=== PATIENT | female | born 2000 | race Caucasian/White ===

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

== ENCOUNTER 2019-06-22 09:32 | Outpatient (CLI) | payer OTHER ==
[2019-06-22 10:30] LABS: Basophils % (A) 0 %; Eosinophils # (A) 0.1 k/uL (0-0.7); Eosinophils % (A) 1 %; HCT 35.8 % (34.0-46.0); HGB 11.7 gm/dL (11.4-16.0); Hypochromasia Moderate; Lymphocytes # (A) 2.5 k/uL (1.0-4.8); Lymphocytes % (A) 23 %; MCH 26.3 pg (25.0-35.0); MCHC 32.7 g/dL (31.0-37.0); MCV 80.4 fL (80.0-100.0); Mean Platelet Volume 6.8; Monocytes # (A) 0.4 k/uL (0-1.0); Monocytes % (A) 4 %; Neutrophils # (A) 7.9 k/uL (1.3-7.7); Neutrophils % (A) 71 %; Platelet Count 234 k/uL (150-450); Poikilocytosis Slight; RBC 4.45 m/uL (3.80-5.40); RDW 13.8 % (11.5-15.5); WBC 11.1 k/uL (4.0-11.0)
[2019-06-22 10:30] LABS: Appearance,Urine Cloudy (Clear); Bilirubin,Urine Negative (Negative); Blood,Urine Negative (Negative); Color,Urine Yellow; Glucose,Urine (UA) Negative (Negative); Ketones,Urine Negative (Negative); Leukocyte Esterase,Urine Moderate (Negative); Mucus,Urine Few /hpf; Nitrite,Urine Negative (Negative); PH, Urine 6.5 (5.0-8.0); Protein,Urine 1+ (Negative); RBC,Urine 1 /hpf (0-5); Specific Gravity,Urine 1.023 (1.001-1.035); Squamous Epithelial Cell,Urine 7 /hpf (0-4); WBC,Urine 1 /hpf (0-5)
[2019-06-22 10:37] LABS: ALT 17 U/L (9-52); AST 18 U/L (14-36); African American GFR (CKD) >90 (>60 ml/min/1.73 sqM); Blood Urea Nitrogen 8 mg/dL (7-17); LDH 498 U/L (313-618); Uric Acid 3.4 mg/dL (3.7-7.4)
[2019-06-22 11:41] LABS: T4, Free (Free Thyroxine) 0.89 ng/dL (0.78-2.19)
== END 2019-06-22 10:25 | disposition home or self-care (01) ==
LOC: FBPOP 09:32
PROVIDERS: ATTEND Obstetrics & Gynecology
DX: O13.9 Gestational [pregnancy-induced] hypertension without significant proteinuria, unspecified trimester (principal)
CPT/HCPCS: 59025; 81001; 82565; 82570; 83615; 84156; 84439; 84443; 84450; 84460; 84520; 84550; 85025

== ENCOUNTER 2019-07-02 13:13 | Outpatient (CLI) | payer OTHER ==
--- NOTE | 2019-07-02 14:18 | US ---
EXAMINATION TYPE: US OB limited DATE OF EXAM: 07/02/2019 COMPARISON: CLINICAL HISTORY: tila level only, velamentous cord insertion. TILA only per nurse EXAM PERFORMED: Transabdominal (TA) GESTATIONAL AGE / DATING Physician Established: (33 weeks/5 days) EDC: 08/15/2019 No growth performed on today?s study per ordering physician SURVEY TILA: 12.9 cm Normal HEART RATE: 167 bpm RHYTHM: Normal IMPRESSION: Limited scan. Findings above.
== END 2019-07-02 14:45 | disposition home or self-care (01) ==
LOC: FBPOP 13:13
PROVIDERS: ATTEND Obstetrics & Gynecology
DX: O26.93 Pregnancy related conditions, unspecified, third trimester (principal); Z3A.33 33 weeks gestation of pregnancy
CPT/HCPCS: 59025; 76815

== ENCOUNTER 2019-07-25 14:53 | Inpatient (IN) | payer OTHER ==
[2019-07-25 15:59] LABS: Basophils % (A) 0 %; Eosinophils # (A) 0.1 k/uL (0-0.7); Eosinophils % (A) 1 %; HCT 34.9 % (34.0-46.0); HGB 10.9 gm/dL (11.4-16.0); Hypochromasia Moderate; Lymphocytes # (A) 2.7 k/uL (1.0-4.8); Lymphocytes % (A) 25 %; MCH 23.7 pg (25.0-35.0); MCHC 31.2 g/dL (31.0-37.0); MCV 75.9 fL (80.0-100.0); Microcytosis Slight; Monocytes # (A) 0.5 k/uL (0-1.0); Monocytes % (A) 4 %; Neutrophils # (A) 7.4 k/uL (1.3-7.7); Neutrophils % (A) 69 %; Platelet Count 232 k/uL (150-450); Poikilocytosis Slight; WBC 10.9 k/uL (4.0-11.0)
[2019-07-25 16:12] LABS: Appearance,Urine Cloudy (Clear); Bacteria,Urine Rare /hpf; Bilirubin,Urine Negative (Negative); Blood,Urine Trace (Negative); Color,Urine Yellow; Glucose,Urine (UA) Trace (Negative); Ketones,Urine Trace (Negative); Leukocyte Esterase,Urine Moderate (Negative); Mucus,Urine Many /hpf; Nitrite,Urine Negative (Negative); Protein,Urine 2+ (Negative); RBC,Urine 5 /hpf (0-5); Specific Gravity,Urine 1.033 (1.001-1.035); Squamous Epithelial Cell,Urine 10 /hpf (0-4); Urobilinogen,Urine <2.0 mg/dL (<2.0); WBC,Urine 14 /hpf (0-5)
[2019-07-25 16:14] LABS: ALT 18 U/L (9-52); AST 14 U/L (14-36); African American GFR (CKD) >90 (>60 ml/min/1.73 sqM); Blood Urea Nitrogen 15 mg/dL (7-17); LDH 372 U/L (313-618); Non-African American GFR(CKD) >90 (>60 ml/min/1.73 sqM); Uric Acid 4.6 mg/dL (3.7-7.4)
[2019-07-25] MEDS ORDERED: LACTATED RINGERS 1,000 ML IV ONE (16:42)
[2019-07-25] MEDS ORDERED: ceFAZolin 3 GM in SODIUM CHLORIDE 0.9% 100 ML IVPB ONE (16:42)
[2019-07-25] MEDS ORDERED: CITRIC ACID-SODIUM CITRATE 15 ML CUP PO ONE (16:42)
--- NOTE | 2019-07-25 17:04 | P.HPOB ---
History of Present Illness H&P Date: 07/25/19 Chief Complaint: pre-eclampsia 19 year old presents at 37 weeks from the office with elevated blood pressures. Her BPs are ranging from 140-170/86-117. She has been having a headache on and off. P/C ratio is 0.4. heart tones 140 with moderate variability and reactive. Review of Systems All systems: negative Constitutional: Denies chills, Denies fever Eyes: denies blurred vision, denies pain Ears, nose, mouth and throat: Denies headache, Denies sore throat Cardiovascular: Denies chest pain, Denies shortness of breath Respiratory: Denies cough Gastrointestinal: Denies abdominal pain, Denies diarrhea, Denies nausea, Denies vomiting Genitourinary: Denies dysuria, Denies hematuria Musculoskeletal: Denies myalgias Integumentary: Denies pruritus, Denies rash Neurological: Denies numbness, Denies weakness Psychiatric: Denies anxiety, Denies depression Endocrine: Denies fatigue, Denies weight change Past Medical History Past Medical History: Thyroid Disorder History of Any Multi-Drug Resistant Organisms: None Reported Past Surgical History: Adenoidectomy, Section, Cholecystectomy, Orthopedic Surgery, Tonsillectomy Additional Past Surgical History / Comment(s): pancreatic stents Smoking Status: Never smoker Medications and Allergies Home Medications Medication Instructions Recorded Confirmed Type Levothyroxine Sodium [Synthroid] 130 mcg PO DAILY 07/01/18 07/25/19 History Pnv No.95/Ferrous Fum/Folic AC 1 each PO DAILY 07/24/19 07/25/19 History [ Multivitamin Tablet] Allergies Allergy/AdvReac Type Severity Reaction Status Date / Time No Known Allergies Allergy Verified 07/25/19 15:12 Exam Osteopathic Statement: *. No significant issues noted on an osteopathic structural exam other than those noted in the History and Physical/Consult. Vital Signs Temp Pulse Resp BP Pulse Ox 07/25/19 16:47 97.9 F 108 H 18 165/110 97 Intake and Output 07/25/19 07/25/19 07/25/19 06:59 14:59 22:59 Other: Weight 192.777 kg Heart: RRR Lungs: CTAB Abdomen: soft, nontender Extremeties: neg rajwinder's; 2+/4 DTR Results Result Diagrams: 07/25/19 15:45 07/25/19 15:45 Abnormal Lab Results - Last 24 Hours (Table) 07/25/19 07/25/19 07/25/19 Range/Units 15:45 15:54 15:54 Hgb 10.9 L (11.4-16.0) gm/dL MCV 75.9 L (80.0-100.0) fL MCH 23.7 L (25.0-35.0) pg Urine Appearance Cloudy H (Clear) Urine Protein 2+ H (Negative) Urine Glucose (UA) Trace H (Negative) Urine Ketones Trace H (Negative) Urine Blood Trace H (Negative) Ur Leukocyte Esterase Moderate H (Negative) Urine WBC 14 H (0-5) /hpf Ur Squamous Epith Cells 10 H (0-4) /hpf Urine Bacteria Rare H (None) /hpf Urine Mucus Many H (None) /hpf U Random Total Protein 111 H (<12) mg/dL Assessment and Plan (1) Pre-eclampsia Current Visit: Yes Status: Acute Code(s): O14.90 - UNSPECIFIED PRE- ECLAMPSIA, UNSPECIFIED TRIMESTER SNOMED Code(s): 532317312 Plan: 1. repeat low transverse
--- NOTE | 2019-07-25 17:07 | P.MSEPDOC ---
Presenting Problems - Arrival Data Date of Arrival on Unit: 07/25/19 Time of Arrival on Unit: 14:53 Mode of Transport: Ambulatory - Complaint OB-Reason for Admission/Chief Complaint: PIH Medical History - Information : 2 Para: 1 Term: 1 : 0 Abortions: Spontaneous or Elective: 0 Number of Living Children: 1 - Gestational Age Gestational Age by DOMINIC (wks/days): 37 Weeks and 0 Days - History Complications: Prior Review of Systems - Review of Systems Constitutional: No problems Breast: No problems ENT: No problems Cardiovascular: No problems Respiratory: No problems Gastrointestinal: No problems Genitourinary: No problems Musculoskeletal: No problems Neurological: No problems Skin: No problems Vital Signs - Temperature Temperature: 97.9 F Temperature Source: Temporal Artery Scan - Pulse Right Sitting Brachial Pulse Rate: 108 Pulse Assessment Method: Automatic Cuff - Respirations Respiratory Rate: 18 Oxygen Delivery Method: Room Air O2 Sat by Pulse Oximetry: 97 - Blood Pressure Right Arm Sitting Blood Pressure: 165/110 Blood Pressure Mean: 128 Blood Pressure Source: Automatic Cuff Medical Screen Scoring (Pre) - Cervical Exam Dilation: Exam Deferred Effacement: Exam Deferred Membranes: Intact - Uterine Contractions Frequency: N/A - Maternal Vital Signs Maternal Temperature: N/A Maternal Blood Pressure: N/A Signs of Preeclampsia: N/A Maternal Respirations: N/A - Maternal Trauma Maternal Trauma: N/A - Assessment - Baby A Baseline FHR: 150 Heart Rate - NICHD Category: Category I (Normal) = 0 NST: Reactive Position: N/A Station: N/A - Total Score - Baby A Total Score - Baby A: 0 - Total Score - Baby B Total Score - Baby B: 0 - Total Score - Baby C Total Score - Baby C: 0 - Level of Risk - Baby A Level of Risk - Baby A: Low (0-5) - Level of Risk - Baby B Level of Risk - Baby B: Low (0-5) - Level of Risk - Baby C Level of Risk - Baby C: Low (0-5) Physician Notification (Pre) - Physician Notified Physician Notified Date: 07/25/19 Physician Notified Time: 16:45 New Order Received: Yes - Notification Comment Comment: Reviewed serial BP, labs, reactive NST; orders rec'd to preop for repeat section Disposition - Disposition OB Disposition: Admit, LDRP Suite I agree with the RN Medical Screening Exam: Yes Risk & Benefit of care provided described in d/c instruction: No Risk & Benefit of Care Comment: pt was not discharged, she was admitted Diagnosis: UNSPECIFIED PRE-ECLAMPSIA, THIRD TRIMESTER
[2019-07-25] MEDS: LACTATED RINGERS 1,000 ML IV SCH (17:16)
[2019-07-25] MEDS ORDERED: DEXAMETHASONE SOD PHOS (MDV) 100 MG/10 ML VIAL ONE (17:17)
[2019-07-25] MEDS ORDERED: OXYTOCIN 10 UNIT/ML 1 ML VIAL ONE (17:17)
[2019-07-25] MEDS ORDERED: MORPHINE SULFATE (PF) 0.3 MG/0.3 ML SYR ONE (17:17)
[2019-07-25] MEDS ORDERED: ONDANSETRON 4 MG/2 ML VIAL ONE (17:17)
[2019-07-25] MEDS ORDERED: KETOROLAC 30 MG/ML 1 ML VIAL ONE (17:17)
[2019-07-25] MEDS ORDERED: LACTATED RINGERS 1,000 ML BAG IV ONE (17:17)
[2019-07-25] MEDS ORDERED: LANOLIN CREAM 5 GM TUBE TOPICAL PRN (18:06)
[2019-07-25] MEDS ORDERED: METOCLOPRAMIDE 5 MG/ML 2 ML VIAL IVP PRN (18:06)
[2019-07-25] MEDS ORDERED: diphenhydrAMINE 25 MG CAP PO PRN (18:06)
[2019-07-25] MEDS ORDERED: diphenhydrAMINE 50 MG/ML 1 ML VIAL IVP PRN ×2 (18:06)
[2019-07-25] MEDS ORDERED: NALOXONE 0.4 MG/ML 1 ML VIAL IV PRN (18:06)
[2019-07-25] MEDS ORDERED: ZOLPIDEM 5 MG TAB PO PRN (18:06)
[2019-07-25] MEDS ORDERED: ONDANSETRON 4 MG/2 ML VIAL IVP PRN (18:06)
[2019-07-25] MEDS ORDERED: diphenhydrAMINE 50 MG CAP PO PRN (18:06)
[2019-07-25] MEDS ORDERED: ACETAMINOPHEN TAB 325 MG TAB PO PRN (18:06)
[2019-07-25] MEDS ORDERED: SIMETHICONE 80 MG CHEWABLE PO PRN (18:06)
--- NOTE | 2019-07-25 18:11 | P.OP ---
Date of Procedure: 07/25/19 Preoperative Diagnosis: 1. at 37 weeks 2. Preeclampsia Postoperative Diagnosis: 1. at 37 weeks 2. Preeclampsia Procedure(s) Performed: Repeat low transverse Anesthesia: spinal Surgeon: Paola Penn Solar System Designer #1: Nicholas Jalloh Estimated Blood Loss (ml): 600 IV fluids (ml): 1,000 Urine output (ml): 50 Pathology: other (Placenta) Condition: stable Disposition: PACU Indications for Procedure: Please see dictated H&P for full instrument details about indications for procedure. Operative Findings: Normal uterus, tubes, ovaries. Viable female, Apgars 8, 9, weight 10 lbs. 14 oz. Description of Procedure: Patient was taken to the operating room where spinal anesthesia was found be adequate. She was prepped and draped in normal sterile fashion in dorsal supine position with a leftward tilt. Pfannenstiel skin incision was made the scalpel and carried through to the underlying layer of fascia with the scalpel. Fascia was incised in midline and carried bilaterally with the Howard scissors. The superior aspect of the fascial incision was grasped with Misty clamps elevated and the underlying rectus muscles dissected off with the Howard's. Attention was then turned to inferior aspect of same incision which in a similar fashion was grasped tented up and the underlying rectus muscles dissected off with the Howard's. The rectus muscles were the midline and the peritoneum was identified tented up and entered sharply with the scalpel. The incision was extended superiorly and inferiorly with good visualization of the bladder. The bladder blade was inserted and a low transverse incision was then made on the uterus with the scalpel. This was carried bilaterally and digital manner. 's head delivered atraumatically, nose and mouth bulb suctioned, cord clamped and cut, infant handed off to waiting nurses. Apgars 8,9, weight 10 lbs. 14 oz. Placenta delivered manually, intact with three-vessel cord. The uterus is exteriorized and cleared of all clots and debris. The uterine incision was closed with 0 Vicryl in a running locked fashion. Second layer of the same sutures used in imbricating fashion to obtain excellent hemostasis. Both ovaries and tubes appeared normal. The uterus was placed back into the abdomen. The peritoneum was reapproximated using 2-0 Vicryl in a running fashion To avoid the omentum that was adhered to the peritoneum just superior to the incision. The muscles were reapproximated using 2-0 Vicryl in interrupted fashion. The fascia was reapproximated using 0 Vicryl in a running fashion. The subcutaneous tissues closed with 3-0 Vicryl running fashion. The skin was closed kate. Patient tolerated the procedure well, sponge and instrument counts were correct times 2 and she was taken to the recovery room in stable condition.
[2019-07-25] MEDS ORDERED: OXYTOCIN 20 UNITS/1000 ML NS 1,000 ML IV SCH (18:15)
[2019-07-25] MEDS: SENNOSIDES-DOCUSATE SODIUM 1 EACH TAB PO SCH (21:29)
[2019-07-25] MEDS: KETOROLAC 30 MG/ML 1 ML VIAL IVP PRN (23:15)
[2019-07-26] MEDS: LACTATED RINGERS 1,000 ML IV SCH ×3 (02:31→19:32)
--- NOTE | 2019-07-26 06:01 | P.PN ---
Progress Note - Text Progress Note Date: 07/26/19 Patient without complaints. Denies weakness or paresthesia. Denies headache. Minimal pruritis. Pain controlled. VSS Back - spinal site c/d A/P POD#1 s/p with spinal - doing well
[2019-07-26] MEDS: KETOROLAC 30 MG/ML 1 ML VIAL IVP PRN ×3 (06:14→19:21)
--- NOTE | 2019-07-26 06:22 | P.PNOBGPC ---
Subjective - Subjective Patient reports: Reports appetite normal, Reports voiding normally, Reports pain well controlled, Reports ambulating normally : doing well, in NICU (Low blood sugars) Objective - Vital Signs Latest vital signs: Vital Signs Temp Pulse Pulse Resp BP Pulse Ox 07/26/19 03:13 98.3 F 80 16 142/72 96 07/25/19 23:19 97.8 F 97 18 127/83 95 07/25/19 20:14 80 18 145/81 98 07/25/19 19:44 96.2 F L 93 18 137/86 97 07/25/19 19:14 95.9 F L 79 18 132/83 07/25/19 18:59 84 18 140/86 96 07/25/19 18:44 83 18 137/80 98 07/25/19 18:29 93 18 127/85 07/25/19 18:14 97 F L 97 18 118/59 99 07/25/19 17:07 97.9 F 108 H 18 165/110 97 07/25/19 16:47 97.9 F 108 H 18 165/110 97 Intake and Output 07/25/19 07/25/19 07/26/19 14:59 22:59 06:59 Intake Total 2820 Output Total 275 Balance 2545 Intake: Intake, IV Titration 700 Amount Oxytocin 20 Units/1000 ml 700 Ns 1,000 ml @ Per Protocol IV .Q0M [facility] Rx#: [id number] Oral 2120 Output: Urine 275 Other: Voiding Method Indwelling Catheter Incontinent Weight 192.777 kg - Exam Lungs: bilateral: normal Chest: Normal S1, Normal S2 Extremities: Present: normal Abdomen: Present: normal appearance, soft. Absent: distention, tenderness Incision: Present: normal, dry, intact Uterus: Present: normal, firm - Labs Labs: Abnormal Lab Results - Last 24 Hours (Table) 07/25/19 07/25/19 07/25/19 Range/Units 15:45 15:54 15:54 Hgb 10.9 L (11.4-16.0) gm/dL MCV 75.9 L (80.0-100.0) fL MCH 23.7 L (25.0-35.0) pg Urine Appearance Cloudy H (Clear) Urine Protein 2+ H (Negative) Urine Glucose (UA) Trace H (Negative) Urine Ketones Trace H (Negative) Urine Blood Trace H (Negative) Ur Leukocyte Esterase Moderate H (Negative) Urine WBC 14 H (0-5) /hpf Ur Squamous Epith Cells 10 H (0-4) /hpf Urine Bacteria Rare H (None) /hpf Urine Mucus Many H (None) /hpf U Random Total Protein 111 H (<12) mg/dL Assessment and Plan Assessment: This is postoperative day #1. Patient is resting without new complaints. Blood pressures are fine and not requiring medication at this time. Patient does not report any excessive pain. Incision is intact and dry. Patient's having adequate urine output from her Espitia catheter. Plan today is to check a CBC, encourage ambulation, allow the patient to shower, discontinue her Espitia catheter, and advance her diet. (1) delivery delivered Current Visit: Yes Status: Acute Code(s): O82 - ENCOUNTER FOR DELIVERY WITHOUT INDICATION SNOMED Code(s): 561781018 (2) Pre-eclampsia Current Visit: Yes Status: Acute Code(s): O14.90 - UNSPECIFIED PRE- ECLAMPSIA, UNSPECIFIED TRIMESTER SNOMED Code(s): 082233585
[2019-07-26 07:08] LABS: Basophils % (A) 0 %; Eosinophils % (A) 0 %; HCT 30.6 % (34.0-46.0); HGB 9.6 gm/dL (11.4-16.0); Hypochromasia Moderate; Lymphocytes # (A) 3.2 k/uL (1.0-4.8); Lymphocytes % (A) 24 %; MCHC 31.4 g/dL (31.0-37.0); MCV 76.4 fL (80.0-100.0); Mean Platelet Volume 8.4; Microcytosis Slight; Monocytes # (A) 0.7 k/uL (0-1.0); Monocytes % (A) 5 %; Neutrophils # (A) 9.2 k/uL (1.3-7.7); Neutrophils % (A) 69 %; Platelet Count 235 k/uL (150-450); Poikilocytosis Slight; RBC 4.01 m/uL (3.80-5.40); WBC 13.3 k/uL (4.0-11.0)
[2019-07-26] MEDS: SENNOSIDES-DOCUSATE SODIUM 1 EACH TAB PO SCH ×2 (08:02→19:20)
[2019-07-26] MEDS: HYDROcodone/APAP 7.5-325MG 1 EACH TAB PO PRN ×2 (17:05→23:22)
[2019-07-27] MEDS: KETOROLAC 30 MG/ML 1 ML VIAL IVP PRN (03:49)
--- NOTE | 2019-07-27 07:04 | P.PNOBGPC ---
Subjective - Subjective Patient reports: Reports appetite normal, Reports voiding normally, Reports pain well controlled, Reports ambulating normally : doing well, in NICU Objective - Vital Signs Latest vital signs: Vital Signs Temp Pulse Resp BP Pulse Ox 07/27/19 00:00 98.5 F 100 16 126/64 97 07/26/19 15:53 98.2 F 97 18 121/95 97 07/26/19 12:00 98.3 F 83 18 140/82 97 07/26/19 08:00 98.7 F 94 18 127/77 96 Intake and Output 07/26/19 07/27/19 07/27/19 22:59 06:59 14:59 Output Total 700 Balance -700 Output: Urine 700 Other: # Voids 1 1 - Exam Lungs: bilateral: normal Chest: Normal S1, Normal S2 Extremities: Present: normal Abdomen: Present: normal appearance, soft. Absent: distention, tenderness Incision: Present: normal, dry, intact Uterus: Present: normal, firm - Labs Labs: Abnormal Lab Results - Last 24 Hours (Table) 07/26/19 Range/Units 06:50 WBC 13.3 H (4.0-11.0) k/uL Hgb 9.6 L (11.4-16.0) gm/dL Hct 30.6 L (34.0-46.0) % MCV 76.4 L (80.0-100.0) fL MCH 24.0 L (25.0-35.0) pg Neutrophils # 9.2 H (1.3-7.7) k/uL Assessment and Plan Assessment: Postoperative day #2. This patient is resting without complaints. Vital signs are stable and she is afebrile. Blood pressures look very good. Incision is intact and dry. CBC yesterday was normal. Patient is ambulating and urinating without difficulty. My impression this is a normal post operative course. Patient's baby is in special care due to some oxygen demands otherwise doing well. Plan will be to continue ambulation and routine postoperative care. (1) delivery delivered Current Visit: Yes Status: Acute Code(s): O82 - ENCOUNTER FOR DELIVERY WITHOUT INDICATION SNOMED Code(s): 665425621 (2) Pre-eclampsia Current Visit: Yes Status: Acute Code(s): O14.90 - UNSPECIFIED PRE- ECLAMPSIA, UNSPECIFIED TRIMESTER SNOMED Code(s): 407172636
[2019-07-27] MEDS: SENNOSIDES-DOCUSATE SODIUM 1 EACH TAB PO SCH ×2 (07:45→20:02)
[2019-07-27] MEDS: HYDROcodone/APAP 7.5-325MG 1 EACH TAB PO PRN ×3 (07:45→20:02)
[2019-07-27] MEDS: IBUPROFEN 600 MG TAB PO PRN ×2 (11:07→17:10)
[2019-07-28] MEDS: IBUPROFEN 600 MG TAB PO PRN (00:11)
[2019-07-28] MEDS: HYDROcodone/APAP 7.5-325MG 1 EACH TAB PO PRN (04:44)
--- NOTE | 2019-07-28 08:30 | P.DS ---
Providers Date of admission: 07/25/19 16:41 Expected date of discharge: 07/28/19 Attending physician: Paola Penn Primary care physician: Stated None - Discharge Diagnosis(es) (1) Pre-eclampsia Current Visit: Yes Status: Resolved (2) delivery delivered Current Visit: Yes Status: Acute Hospital Course: Patient presented term with elevated blood pressure. She was diagnosed with preeclampsia and taken for repeat low transverse . Postoperatively her course was uncomplicated. Her blood pressures normalized. She denies nausea, vomiting, chest pain, shortness of breath or calf pain. Her incision is clean, dry, intact with kate which will be removed today before discharge. Discharge instructions were reviewed and she will follow-up with me in one week. Plan - Discharge Summary New Discharge Prescriptions: New Ibuprofen [Motrin] 600 mg PO Q6HR PRN #30 tab PRN Reason: Mild Pain Or Fever >= 100.5 HYDROcodone/APAP 7.5-325MG [[place] 7.5-325] 1 each PO Q6H PRN #12 tab PRN Reason: Severe Pain No Action Levothyroxine Sodium [Synthroid] 130 mcg PO DAILY Pnv No.95/Ferrous Fum/Folic AC [ Multivitamin Tablet] 1 each PO DAILY Discharge Medication List Levothyroxine Sodium [Synthroid] 130 mcg PO DAILY 07/01/18 [History] Pnv No.95/Ferrous Fum/Folic AC [ Multivitamin Tablet] 1 each PO DAILY 07/24/19 [History] HYDROcodone/APAP 7.5-325MG [[place] 7.5-325] 1 each PO Q6H PRN #12 tab 07/28/19 [Rx] Ibuprofen [Motrin] 600 mg PO Q6HR PRN #30 tab 07/28/19 [Rx] Follow up Appointment(s)/Referral(s): Paola Penn DO [Doctor of Osteopathic Medicine] - 6 Weeks Discharge Disposition: HOME SELF-CARE
[2019-07-28 08:44] VITALS: BP 156/80; PULSE 101; RESP 16; TEMP 98.2
== END 2019-07-28 09:45 | disposition home or self-care (01) | DRG 788 ==
LOC: FBPOP 14:53 → 4FBP 16:41
PROVIDERS: ADMIT Obstetrics & Gynecology; ATTEND Obstetrics & Gynecology
PROC: 10D00Z1 Extraction of Products of Conception, Low, Open Approach (ICD-10-PCS; principal; 2019-07-25 17:30)
DX: O14.94 Unspecified pre-eclampsia, complicating childbirth (principal); O34.211 Maternal care for low transverse scar from previous cesarean delivery; Z37.0 Single live birth; Z3A.37 37 weeks gestation of pregnancy; O99.284 Endocrine, nutritional and metabolic diseases complicating childbirth; E07.9 Disorder of thyroid, unspecified; Z79.890 Hormone replacement therapy
CPT/HCPCS: 59025; 81001; 82565; 82570; 83615; 84156; 84450; 84460; 84520; 84550; 85025; 86850; 86900; 86901; 88307; 99215

== ENCOUNTER 2019-08-03 17:29 | Inpatient (IN) | payer OTHER ==
[2019-08-03] MEDS ORDERED: LABETALOL 5 MG/ML VIAL MDV IVP STA ×2 (17:56→19:49)
[2019-08-03] MEDS ORDERED: SODIUM CHLORIDE 0.9% 500 ML 500 ML IV STA (17:56)
[2019-08-03 18:45] LABS: Basophils # (A) 0.1 k/uL (0-0.2); Basophils % (A) 1 %; Eosinophils # (A) 0.2 k/uL (0-0.7); Eosinophils % (A) 2 %; HGB 11.2 gm/dL (11.4-16.0); Hypochromasia Moderate; Lymphocytes # (A) 2.8 k/uL (1.0-4.8); Lymphocytes % (A) 26 %; MCH 23.8 pg (25.0-35.0); MCV 76.8 fL (80.0-100.0); Mean Platelet Volume 7.8; Microcytosis Slight; Monocytes # (A) 0.5 k/uL (0-1.0); Monocytes % (A) 5 %; Neutrophils # (A) 7.1 k/uL (1.3-7.7); Neutrophils % (A) 66 %; Platelet Count 336 k/uL (150-450); Poikilocytosis Slight; RBC 4.69 m/uL (3.80-5.40); RDW 15.7 % (11.5-15.5); WBC 10.8 k/uL (4.0-11.0)
[2019-08-03 18:50] LABS: Appearance,Urine Clear (Clear); Bacteria,Urine Rare /hpf; Bilirubin,Urine Negative (Negative); Blood,Urine Large (Negative); Color,Urine Light Yellow; Glucose,Urine (UA) Negative (Negative); Ketones,Urine Negative (Negative); Leukocyte Esterase,Urine Large (Negative); Mucus,Urine Rare /hpf; Nitrite,Urine Negative (Negative); PH, Urine 6.5 (5.0-8.0); Protein,Urine Negative (Negative); RBC,Urine 72 /hpf (0-5); Specific Gravity,Urine 1.008 (1.001-1.035); Squamous Epithelial Cell,Urine 1 /hpf (0-4); Urobilinogen,Urine <2.0 mg/dL (<2.0); WBC,Urine 7 /hpf (0-5)
[2019-08-03 18:55] LABS: ALT 18 U/L (4-34); AST 21 U/L (14-36); African American GFR (CKD) >90 (>60 ml/min/1.73 sqM); Albumin 3.6 g/dL (3.5-5.0); Alkaline Phosphatase 147 U/L (38-126); Anion Gap 7 mmol/L; Blood Urea Nitrogen 16 mg/dL (7-17); Calcium 9.1 mg/dL (8.4-10.2); Carbon Dioxide 27 mmol/L (22-30); Chloride 108 mmol/L (98-107); Glucose 81 mg/dL (74-99); LDH 657 U/L (313-618); Magnesium 1.9 mg/dL (1.6-2.3); Non-African American GFR(CKD) >90 (>60 ml/min/1.73 sqM); Potassium 4.1 mmol/L (3.5-5.1); Sodium 142 mmol/L (137-145); Total Bilirubin 0.4 mg/dL (0.2-1.3); Total Protein 6.6 g/dL (6.3-8.2); Uric Acid 7.4 mg/dL (3.7-7.4)
[2019-08-03 19:01] LABS: Protein/Creatinine Ratio,Urine 0.4
[2019-08-03] MEDS: MAGNESIUM SULFATE-D5W PMX 1 GM in DEXTROSE/WATER 1 100ML.BAG IVPB SCH ×2 (19:13→20:15)
[2019-08-03] MEDS ORDERED: MAGNESIUM SULFATE-WATER PMX 4 GM in WATER FOR INJECTION 1 100ML.BAG IVPB ONE (20:12)
[2019-08-03] MEDS ORDERED: MAGNESIUM SULFATE-D5W PMX 1 GM in DEXTROSE/WATER 1 100ML.BAG IVPB SCH (20:15)
[2019-08-03] MEDS ORDERED: NALOXONE 0.4 MG/ML 1 ML VIAL IV PRN (20:28)
[2019-08-03] MEDS ORDERED: LABETALOL 5 MG/ML VIAL MDV IVP PRN ×2 (20:30→22:36)
--- NOTE | 2019-08-03 20:31 | ED ---
General Adult HPI - General Source: patient, RN notes reviewed, old records reviewed Mode of arrival: wheelchair Limitations: no limitations <Chandan Luna - Last Filed: 08/03/19 20:27> <Tania Hargrove - Last Filed: 08/04/19 13:44> - General Chief complaint: Headache Stated complaint: Headache, post op Time Seen by Provider: 08/03/19 17:49 - History of Present Illness Initial comments: 19-year-old female patient past medical history of gestational hypertension, C- section due to preeclampsia one week ago by Dr. Penn presents to ED with chief complaint of headache, blurred vision. Patient was advised by her SPOUT WORKER at the symptoms have been to return to the emergency department. Patient denies any complaints at this time. Denies any abdominal pain. Systemic: Pt denies fatigue, fever/chills, rash. Pt denies weakness, night sweats, weight loss. Neuro: Pt denies visual disturbances, syncope or pre-syncope. HEENT: Pt denies ocular discharge or irritation, otalgia, rhinorrhea, pharyngitis or notable lymphadenopathy. Cardiopulmonary: Pt denies chest pain, SOB, heart palpitations, dyspnea on exertion. Abdominal/GI: Pt denies abdominal pain, n/v/d. : Pt denies dysuria, burning w/ urination, frequency/urgency. Denies new onset urinary or bowel incontinence. MSK: Pt denies myalgia, loss of strength or function in extremities. Neuro: Pt denies new onset weakness, paresthesias. (Chandan Luna) - Related Data Home Medications Medication Instructions Recorded Confirmed Levothyroxine Sodium [Synthroid] 130 mcg PO DAILY 07/01/18 08/03/19 Pnv No.95/Ferrous Fum/Folic AC 1 each PO DAILY 07/24/19 08/03/19 [ Multivitamin Tablet] Previous Rx's Medication Instructions Recorded Ibuprofen [Motrin] 600 mg PO Q6HR PRN #30 tab 07/28/19 Allergies Allergy/AdvReac Type Severity Reaction Status Date / Time No Known Allergies Allergy Verified 08/03/19 23:05 Review of Systems ROS Other: All systems not noted in ROS Statement are negative. <Chandan Luna - Last Filed: 08/03/19 20:27> ROS Other: All systems not noted in ROS Statement are negative. <Tania Hargrove - Last Filed: 08/04/19 13:44> ROS Statement: Those systems with pertinent positive or pertinent negative responses have been documented in the HPI. Past Medical History Past Medical History: Thyroid Disorder Additional Past Medical History / Comment(s): pre eclampsia History of Any Multi-Drug Resistant Organisms: None Reported Past Surgical History: Adenoidectomy, Section, Cholecystectomy, Orthopedic Surgery, Tonsillectomy Additional Past Surgical History / Comment(s): pancreatic stents Past Psychological History: No Psychological Hx Reported Smoking Status: Never smoker Past Alcohol Use History: None Reported Past Drug Use History: None Reported - Past Family History Mother Family Medical History: No Reported History <Chandan Luna - Last Filed: 08/03/19 20:27> General Exam Limitations: no limitations <Chandan Luna - Last Filed: 08/03/19 20:27> - General Exam Comments Initial Comments: Constitutional: NAD, AOX3, Pt has pleasant affect. HEENT: NC/AT, trachea midline, neck supple, no lymphadenopathy. Posterior pharynx non erythematous, without exudates. External ears appear normal, without discharge. Mucous membranes moist. Eyes PERRLA, EOM intact. There is no scleral icterus. No pallor noted. Cardiopulmonary: RRR, no murmurs, rubs or gallops, no JVD noted. Lungs CTAB in anterior and posterior mesa. No peripheral edema. Abdominal exam: Abdomen soft and non-distended. Abdomen non-tender to palpation in all 4 quadrants. Bowel sounds active in LLQ. No hepatosplenomegaly. No ec chymosis. Dizziness that appears clean, is within skinfold, small amount of erythema. No discharge. Neuro: CN II-XII grossly intact. No nuchal rigidity. No raccon eyes, no costello sign, no hemotympanum. No cervical spinal tenderness. MSK: No posterior calf tenderness bilaterally, homans sign negative bilaterally. Posterior tibialis and radial pulse +2 bilaterally. Sensation intact in upper and lower extremities. Full active ROM in upper and lower extremities, 5/5 stregnth. (Chandan Luna) Course Vital Signs 08/03/19 08/03/19 08/03/19 17:35 19:08 19:15 Temperature 98.6 F Pulse Rate 83 76 78 Respiratory 18 20 20 Rate Blood Pressure 162/108 161/106 151/95 O2 Sat by Pulse 97 98 98 Oximetry 08/03/19 08/03/19 08/03/19 19:54 20:19 21:11 Temperature 98.6 F Pulse Rate 77 81 77 Respiratory 18 20 20 Rate Blood Pressure 155/87 158/83 166/90 O2 Sat by Pulse 100 98 97 Oximetry Medical Decision Making - Lab Data Result diagrams: 08/03/19 18:27 08/03/19 18:27 <Chandan Luna - Last Filed: 08/03/19 20:27> - Lab Data Result diagrams: 08/04/19 05:48 08/04/19 05:48 <Tania Hargrove - Last Filed: 08/04/19 13:44> - Medical Decision Making 19-year-old female patient past medical history of gestational hypertension, C- section due to preeclampsia one week ago by Dr. Penn presents to ED with chief complaint of headache, blurred vision. Patient was advised by her SPOUT WORKER at the symptoms have been to return to the emergency department. Patient denies any complaints at this time. Denies any abdominal pain. Patient will signs blood hypertension, patient initiated on magnesium, labetalol. Physical exam displayed intact neurologic exam. Incision site was examined, there is small amount of erythema, however this within skinfold due to body habitus. No streaking. No discharge. Laboratory investigations revealed elevated lactic dehydrogenase. Mild hematuria. Case discussed with Dr. Hargrove who discussed case with Dr. Penn. Patient will be admitted on magnesium drip to Dr. Penn. (Chandan Luna) I was available for consultation in the emergency department. The history and physical exam were done by the midlevel provider. I was consulted for this patients care. I reviewed the case with the midlevel provider and based on their presentation of the patient, I agree with the assessment, medical decision making and plan of care as documented. I evaluated the patient myself. She promptly received magnesium bolus and labetalol by the midlevel. After results were obtained, I discussed the case with Dr. Penn who accepted admission of the patient on a magenisum gtt at 2 grams/hr. Blood pressure goal will be less than 160 systolic. staning labetalol order was placed. Chart was dictated using [employer] dictation software. Attempts were made to correct any dictation errors however some typographical errors may persist. (Tania Hargrove) - Lab Data Lab Results 08/03/19 08/03/19 08/03/19 Range/Units 18:27 18:27 18:27 WBC 10.8 (4.0-11.0) k/uL RBC 4.69 (3.80-5.40) m/uL Hgb 11.2 L (11.4-16.0) gm/dL Hct 36.0 (34.0-46.0) % MCV 76.8 L (80.0-100.0) fL MCH 23.8 L (25.0-35.0) pg MCHC 31.0 (31.0-37.0) g/dL RDW 15.7 H (11.5-15.5) % Plt Count 336 (150-450) k/uL Neutrophils % 66 % Lymphocytes % 26 % Monocytes % 5 % Eosinophils % 2 % Basophils % 1 % Neutrophils # 7.1 (1.3-7.7) k/uL Lymphocytes # 2.8 (1.0-4.8) k/uL Monocytes # 0.5 (0-1.0) k/uL Eosinophils # 0.2 (0-0.7) k/uL Basophils # 0.1 (0-0.2) k/uL Hypochromasia Moderate Poikilocytosis Slight Microcytosis Slight Sodium 142 (137-145) mmol/L Potassium 4.1 (3.5-5.1) mmol/L Chloride 108 H (98-107) mmol/L Carbon Dioxide 27 (22-30) mmol/L Anion Gap 7 mmol/L BUN 16 (7-17) mg/dL Creatinine 0.87 (0.52-1.04) mg/dL Est GFR (CKD-EPI)AfAm >90 (>60 ml/min/1.73 sqM) Est GFR (CKD-EPI)NonAf >90 (>60 ml/min/1.73 sqM) Glucose 81 (74-99) mg/dL Plasma Lactic Acid Jose (0.7-2.0) mmol/L Uric Acid 7.4 (3.7-7.4) mg/dL Calcium 9.1 (8.4-10.2) mg/dL Magnesium 1.9 (1.6-2.3) mg/dL Total Bilirubin 0.4 (0.2-1.3) mg/dL AST 21 (14-36) U/L ALT 18 (4-34) U/L Alkaline Phosphatase 147 H (38-126) U/L Lactate Dehydrogenase 657 H (313-618) U/L Total Protein 6.6 (6.3-8.2) g/dL Albumin 3.6 (3.5-5.0) g/dL Lipase 20 L (23-300) U/L TSH 3.420 (0.465-4.680) mIU/L Urine Color Urine Appearance (Clear) Urine pH (5.0-8.0) Ur Specific Frederick (1.001-1.035) Urine Protein (Negative) Urine Glucose (UA) (Negative) Urine Ketones (Negative) Urine Blood (Negative) Urine Nitrite (Negative) Urine Bilirubin (Negative) Urine Urobilinogen (<2.0) mg/dL Ur Leukocyte Esterase (Negative) Urine RBC (0-5) /hpf Urine WBC (0-5) /hpf Ur Squamous Epith Cells (0-4) /hpf Urine Bacteria (None) /hpf Urine Mucus (None) /hpf Urine Creatinine 37.8 mg/dL Protein/Creatinin Ratio 0.4 Urine Total Protein 17 mg/dL 08/03/19 08/03/19 Range/Units 18:27 18:38 WBC (4.0-11.0) k/uL RBC (3.80-5.40) m/uL Hgb (11.4-16.0) gm/dL Hct (34.0-46.0) % MCV (80.0-100.0) fL MCH (25.0-35.0) pg MCHC (31.0-37.0) g/dL RDW (11.5-15.5) % Plt Count (150-450) k/uL Neutrophils % % Lymphocytes % % Monocytes % % Eosinophils % % Basophils % % Neutrophils # (1.3-7.7) k/uL Lymphocytes # (1.0-4.8) k/uL Monocytes # (0-1.0) k/uL Eosinophils # (0-0.7) k/uL Basophils # (0-0.2) k/uL Hypochromasia Poikilocytosis Microcytosis Sodium (137-145) mmol/L Potassium (3.5-5.1) mmol/L Chloride (98-107) mmol/L Carbon Dioxide (22-30) mmol/L Anion Gap mmol/L BUN (7-17) mg/dL Creatinine (0.52-1.04) mg/dL Est GFR (CKD-EPI)AfAm (>60 ml/min/1.73 sqM) Est GFR (CKD-EPI)NonAf (>60 ml/min/1.73 sqM) Glucose (74-99) mg/dL Plasma Lactic Acid Jose 1.0 (0.7-2.0) mmol/L Uric Acid (3.7-7.4) mg/dL Calcium (8.4-10.2) mg/dL Magnesium (1.6-2.3) mg/dL Total Bilirubin (0.2-1.3) mg/dL AST (14-36) U/L ALT (4-34) U/L Alkaline Phosphatase (38-126) U/L Lactate Dehydrogenase (313-618) U/L Total Protein (6.3-8.2) g/dL Albumin (3.5-5.0) g/dL Lipase (23-300) U/L TSH (0.465-4.680) mIU/L Urine Color Light Yellow Urine Appearance Clear (Clear) Urine pH 6.5 (5.0-8.0) Ur Specific Frederick 1.008 (1.001-1.035) Urine Protein Negative (Negative) Urine Glucose (UA) Negative (Negative) Urine Ketones Negative (Negative) Urine Blood Large H (Negative) Urine Nitrite Negative (Negative) Urine Bilirubin Negative (Negative) Urine Urobilinogen <2.0 (<2.0) mg/dL Ur Leukocyte Esterase Large H (Negative) Urine RBC 72 H (0-5) /hpf Urine WBC 7 H (0-5) /hpf Ur Squamous Epith Cells 1 (0-4) /hpf Urine Bacteria Rare H (None) /hpf Urine Mucus Rare H (None) /hpf Urine Creatinine mg/dL Protein/Creatinin Ratio Urine Total Protein mg/dL Disposition Is patient prescribed a controlled substance at d/c from ED?: No <Chandan Luna - Last Filed: 08/03/19 20:27> <Tania Hargrove - Last Filed: 08/04/19 13:44> Clinical Impression: Pre-eclampsia Disposition: ADMITTED IP TO THIS HOSP Condition: Serious
[2019-08-03] MEDS: MAGNESIUM SULFATE-WATER PMX 20 GM in WATER FOR INJECTION 1 500ML.BAG IV SCH (21:55)
[2019-08-03] MEDS ORDERED: ACETAMINOPHEN TAB 500 MG TAB PO PRN (22:27)
[2019-08-03] MEDS ORDERED: LABETALOL SYRINGE 5 MG/ML IVP PRN (22:36)
[2019-08-03] MEDS ORDERED: hydrALAZINE HCL 20 MG/ML 1 ML VIAL IVP PRN ×2 (22:36)
[2019-08-04] MEDS: IBUPROFEN 600 MG TAB PO PRN ×2 (00:19→15:06)
[2019-08-04] MEDS: LABETALOL 200 MG TAB PO SCH ×3 (00:19→20:56)
[2019-08-04] MEDS: LACTATED RINGERS 1,000 ML IV SCH ×2 (03:07→11:20)
[2019-08-04 06:12] LABS: Basophils % (A) 0 %; Eosinophils # (A) 0.2 k/uL (0-0.7); Eosinophils % (A) 2 %; HCT 32.5 % (34.0-46.0); Hypochromasia Marked; Lymphocytes # (A) 3.2 k/uL (1.0-4.8); Lymphocytes % (A) 29 %; MCH 22.9 pg (25.0-35.0); MCHC 28.8 g/dL (31.0-37.0); MCV 79.6 fL (80.0-100.0); Mean Platelet Volume 8.1; Monocytes # (A) 0.4 k/uL (0-1.0); Monocytes % (A) 4 %; Neutrophils # (A) 6.9 k/uL (1.3-7.7); Neutrophils % (A) 63 %; Platelet Count 337 k/uL (150-450); Poikilocytosis Slight; RBC 4.08 m/uL (3.80-5.40); RDW 15.1 % (11.5-15.5); WBC 10.9 k/uL (4.0-11.0)
[2019-08-04 06:13] LABS: HGB 9.4 gm/dL (11.4-16.0)
[2019-08-04 06:26] LABS: ALT 16 U/L (4-34); AST 20 U/L (14-36); African American GFR (CKD) >90 (>60 ml/min/1.73 sqM); Alkaline Phosphatase 132 U/L (38-126); Anion Gap 7 mmol/L; Blood Urea Nitrogen 12 mg/dL (7-17); Calcium 8.1 mg/dL (8.4-10.2); Carbon Dioxide 25 mmol/L (22-30); Chloride 109 mmol/L (98-107); Glucose 97 mg/dL (74-99); Non-African American GFR(CKD) >90 (>60 ml/min/1.73 sqM); Potassium 4.3 mmol/L (3.5-5.1); Sodium 141 mmol/L (137-145); Total Bilirubin 0.4 mg/dL (0.2-1.3); Total Protein 5.8 g/dL (6.3-8.2)
[2019-08-04] MEDS: LEVOTHYROXINE 137 MCG TAB PO SCH (06:29)
[2019-08-04] MEDS: MAGNESIUM SULFATE-WATER PMX 20 GM in WATER FOR INJECTION 1 500ML.BAG IV SCH ×3 (07:54→18:00)
[2019-08-04] MEDS: FLUCONAZOLE 100 MG TAB PO SCH (14:06)
[2019-08-05 00:08] VITALS: PULSE 86
[2019-08-05] MEDS: LACTATED RINGERS 1,000 ML IV SCH (00:10)
[2019-08-05] MEDS: LEVOTHYROXINE 137 MCG TAB PO SCH (06:53)
[2019-08-05 07:40] VITALS: BP 139/67; RESP 18; TEMP 97.5
--- NOTE | 2019-08-05 08:13 | P.HPOB ---
History of Present Illness H&P Date: 08/04/19 Chief Complaint: headache, inc BP 19 year old S/P RLTCS POD #10 presented to emergency room with swelling and headache. She was diagnosed with preeclampsia by a PC ratio of 0.4 and blood pressures of up to 180/107. She'll be admitted to [facility] for prophylactic treatment with magnesium sulfate. Review of Systems All systems: negative Constitutional: Denies chills, Denies fever Eyes: denies blurred vision, denies pain Ears, nose, mouth and throat: Reports headache, Denies sore throat Cardiovascular: Denies chest pain, Denies shortness of breath Respiratory: Denies cough Gastrointestinal: Denies abdominal pain, Denies diarrhea, Denies nausea, Denies vomiting Genitourinary: Denies dysuria, Denies hematuria Musculoskeletal: Denies myalgias Integumentary: Denies pruritus, Denies rash Neurological: Denies numbness, Denies weakness Psychiatric: Denies anxiety, Denies depression Endocrine: Denies fatigue, Denies weight change Past Medical History Past Medical History: Thyroid Disorder Additional Past Medical History / Comment(s): pre eclampsia, gest hypertention History of Any Multi-Drug Resistant Organisms: None Reported Past Surgical History: Adenoidectomy, Section, Cholecystectomy, Or thopedic Surgery, Tonsillectomy Additional Past Surgical History / Comment(s): pancreatic stents Past Anesthesia/Blood Transfusion Reactions: No Reported Reaction Past Psychological History: No Psychological Hx Reported Smoking Status: Never smoker Past Alcohol Use History: None Reported Past Drug Use History: None Reported - Past Family History Mother Family Medical History: No Reported History Medications and Allergies Home Medications Medication Instructions Recorded Confirmed Type Levothyroxine Sodium [Synthroid] 130 mcg PO DAILY 07/01/18 08/03/19 History Pnv No.95/Ferrous Fum/Folic AC 1 each PO DAILY 07/24/19 08/03/19 History [ Multivitamin Tablet] Ibuprofen [Motrin] 600 mg PO Q6HR PRN #30 tab 07/28/19 08/03/19 Rx Allergies Allergy/AdvReac Type Severity Reaction Status Date / Time No Known Allergies Allergy Verified 08/03/19 23:05 Exam Osteopathic Statement: *. No significant issues noted on an osteopathic structural exam other than those noted in the History and Physical/Consult. Vital Signs Temp Pulse Resp BP Pulse Ox 08/05/19 07:39 97.5 F L 86 18 139/67 97 08/05/19 03:49 97.9 F 86 15 140/80 98 08/05/19 00:00 97.9 F 86 16 131/71 97 08/04/19 20:00 97.3 F L 88 16 159/92 97 08/04/19 19:00 99 16 148/87 97 08/04/19 18:00 92 18 151/81 98 08/04/19 17:00 98.4 F 89 18 153/98 08/04/19 16:00 97.9 F 86 16 144/88 97 08/04/19 15:00 98.4 F 91 18 139/86 96 08/04/19 14:00 98 18 148/90 97 08/04/19 13:00 97.4 F L 94 18 143/74 97 08/04/19 12:00 97.9 F 88 18 140/76 97 08/04/19 11:00 97.7 F 87 18 143/81 97 08/04/19 10:00 97.4 F L 91 18 145/95 98 08/04/19 09:00 95 18 140/97 08/04/19 08:55 175/110 Intake and Output 08/04/19 08/05/19 08/05/19 22:59 06:59 14:59 Intake Total 1000 Output Total 1450 850 Balance -450 -850 Intake: IV 500 Magnesium Sulfate-Water 500 Pmx 20 gm In Water For Injection 1 500ml.bag @ 2 GM/HR 50 mls/hr IV .Q10H TAMMI Rx#:[id number] Intake, IV Titration 500 Amount Magnesium Sulfate-Water 500 Pmx 20 gm In Water For Injection 1 500ml.bag @ 2 GM/HR 50 mls/hr IV .Q10H TAMMI Rx#:[id number] Output: Urine 1450 850 Other: # Voids 1 2 Weight 177.445 kg Heart: Regular rate and rhythm Lungs: Clear to auscultation bilaterally Abdomen: Soft, nontender, she says her incision is pruritic. There is erythema around the incision consistent with yeast. Extremities: Negative Homans sign Results Result Diagrams: 08/04/19 05:48 08/04/19 05:48 Assessment and Plan (1) Pre-eclampsia Current Visit: No Status: Resolved Code(s): O14.90 - UNSPECIFIED PRE- ECLAMPSIA, UNSPECIFIED TRIMESTER SNOMED Code(s): 102374160 (2) delivery delivered Current Visit: No Status: Acute Code(s): O82 - ENCOUNTER FOR DELIVERY WITHOUT INDICATION SNOMED Code(s): 813720299 (3) Nargis albicans infection Current Visit: Yes Status: Acute Code(s): B37.9 - CANDIDIASIS, UNSPECIFIED SNOMED Code(s): 24222317 Plan: 1. Admit to family place 2. Magnesium sulfate 3. Her blood pressure was still elevated so I did start labetalol 200 mg twice a day as well 4. follow-up on her in Diflucan for her Nargis near her incision.
[2019-08-05] MEDS: FLUCONAZOLE 100 MG TAB PO SCH (08:16)
[2019-08-05] MEDS: LABETALOL 200 MG TAB PO SCH (08:16)
--- NOTE | 2019-08-05 08:24 | P.DS ---
Providers Date of admission: 08/03/19 20:33 Expected date of discharge: 08/05/19 Attending physician: Paola Penn Primary care physician: Brittani Alas - Discharge Diagnosis(es) (1) Pre-eclampsia Current Visit: No Status: Resolved (2) delivery delivered Current Visit: No Status: Acute (3) Nargis albicans infection Current Visit: Yes Status: Acute Hospital Course: Patient presented with a headache and elevated blood pressures. She was admitted to [facility] placed on magnesium sulfate and labetalol 200 mg twice a day. Her incision had also been beefy-red and appeared to be Nargis though the incision itself was intact. She was given Diflucan and a fungal powder which improved the Nargis infection significantly. The labetalol brought her blood pressures down to 130s to 140s over 80s. She denies any headache, nausea, vomiting, chest pain, shortness of breath or calf pain and no right upper quadrant pain or vision changes. She'll be discharged home with specific instructions to return for headache worsens. She is given signs and symptoms of preeclampsia and eclampsia. She is to follow-up with me in 3 days for a blood pressure check and incision check. Patient Condition at Discharge: Serious Plan - Discharge Summary New Discharge Prescriptions: New Fluconazole [Diflucan] 200 mg PO DAILY #1 tab Labetalol [Trandate] 200 mg PO BID #60 tab No Action Levothyroxine Sodium [Synthroid] 130 mcg PO DAILY Pnv No.95/Ferrous Fum/Folic AC [ Multivitamin Tablet] 1 each PO DAILY Ibuprofen [Motrin] 600 mg PO Q6HR PRN #30 tab PRN Reason: Mild Pain Or Fever >= 100.5 Discharge Medication List Levothyroxine Sodium [Synthroid] 130 mcg PO DAILY 07/01/18 [History] Pnv No.95/Ferrous Fum/Folic AC [ Multivitamin Tablet] 1 each PO DAILY 07/24/19 [History] Ibuprofen [Motrin] 600 mg PO Q6HR PRN #30 tab 07/28/19 [Rx] Fluconazole [Diflucan] 200 mg PO DAILY #1 tab 08/05/19 [Rx] Labetalol [Trandate] 200 mg PO BID #60 tab 08/05/19 [Rx] Follow up Appointment(s)/Referral(s): Brittani Alas MD [Primary Care Provider] - 1-2 days Paola Penn DO [Doctor of Osteopathic Medicine] - 08/08/19 Discharge Disposition: HOME SELF-CARE
== END 2019-08-05 09:20 | disposition home or self-care (01) | DRG 776 ==
LOC: EC 17:29 → 4FBP 20:33
PROVIDERS: ADMIT Obstetrics & Gynecology; ATTEND Obstetrics & Gynecology
DX: O14.95 Unspecified pre-eclampsia, complicating the puerperium (principal); O98.83 Other maternal infectious and parasitic diseases complicating the puerperium; B37.89 Other sites of candidiasis; O99.285 Endocrine, nutritional and metabolic diseases complicating the puerperium; Z79.890 Hormone replacement therapy; Z90.49 Acquired absence of other specified parts of digestive tract
CPT/HCPCS: 80053; 81001; 82570; 83605; 83615; 83690; 83735; 84156; 84443; 84550; 85025; 96365; 96366; 96375; 96376; 99285

== ENCOUNTER 2020-12-24 11:52 | Emergency (ER) | payer OTHER ==
[2020-12-24 11:56] VITALS: RESP 16; TEMP 98
--- NOTE | 2020-12-24 12:28 | ED ---
General Adult HPI - General Chief complaint: Extremity Injury, Lower Stated complaint: ankle injury Time Seen by Provider: 12/24/20 12:02 Source: patient, RN notes reviewed, old records reviewed Mode of arrival: ambulatory Limitations: no limitations - History of Present Illness Initial comments: 20-year-old male with left ankle injury. She states she twisted her ankle yesterday while walking in the [place]. She has pain in the lower leg and left ankle on the lateral side. No head or neck trauma. No anticoagulation. No other injury. She said pain and swelling since the time of injury. No numbness or tingling. Patient is able to ambulate but has a limp. - Related Data Home Medications Medication Instructions Recorded Confirmed Levothyroxine Sodium [Synthroid] 300 mcg PO DAILY 06/09/20 06/09/20 Previous Rx's Medication Instructions Recorded Ibuprofen [Motrin] 600 mg PO Q6HR PRN #30 tab 07/28/19 Labetalol [Trandate] 200 mg PO BID #60 tab 08/05/19 Allergies Allergy/AdvReac Type Severity Reaction Status Date / Time No Known Allergies Allergy Verified 12/24/20 11:56 Review of Systems ROS Statement: Those systems with pertinent positive or pertinent negative responses have been documented in the HPI. ROS Other: All systems not noted in ROS Statement are negative. Past Medical History Past Medical History: Hypertension, Thyroid Disorder Additional Past Medical History / Comment(s): pre eclampsia, gest hypertention, HTN started with , History of Any Multi-Drug Resistant Organisms: None Reported Past Surgical History: Adenoidectomy, Section, Cholecystectomy, Orthopedic Surgery, Tonsillectomy Additional Past Surgical History / Comment(s): pancreatic stents, booked for lumbar puncture r/t fluid on brain and optic nerves enlarged per pt, Past Anesthesia/Blood Transfusion Reactions: No Reported Reaction Additional Past Anesthesia/Blood Transfusion Reaction / Comment(s): no previous blood transfusion Past Psychological History: No Psychological Hx Reported Smoking Status: Never smoker Past Alcohol Use History: None Reported Past Drug Use History: None Reported - Past Family History Mother Family Medical History: No Reported History General Exam Limitations: no limitations General appearance: alert, in no apparent distress Head exam: Present: atraumatic, normocephalic Eye exam: Present: normal appearance, PERRL ENT exam: Present: normal exam Neck exam: Present: normal inspection Respiratory exam: Present: normal lung sounds bilaterally. Absent: respiratory distress Cardiovascular Exam: Present: regular rate, normal rhythm GI/Abdominal exam: Present: soft. Absent: distended, tenderness, guarding Extremities exam: Present: other (Left lower extremity, there is swelling on the lateral aspect of the ankle, tenderness over the lateral malleolus. No ecchymosis, no gross deformity. Distal pulses intact, normal sensation.) Course Vital Signs 12/24/20 11:53 Temperature 98.0 F Pulse Rate 62 Respiratory 16 Rate Blood Pressure 146/89 O2 Sat by Pulse 96 Oximetry Procedures - Orthopedic Splinting/Casting Injury #1 Side: left Lower Extremity Injury Location: ankle Lower Extremity Immobilizer: Wilmer wrap Medical Decision Making - Medical Decision Making 20-year-old female with left ankle injury, x-ray performed of both the ankle and the tibia and fibula, negative for fracture or dislocation. Patient placed in an Wilmer wrap and will be given orthopedic follow-up as needed. If symptoms persist she will require repeat x-rays in 1 week. She is instructed to rest, elevate, and ice the extremity. Disposition Clinical Impression: Sprain and strain of ankle Disposition: HOME SELF-CARE Condition: Good Instructions (If sedation given, give patient instructions): Ankle Sprain (ED) Is patient prescribed a controlled substance at d/c from ED?: No Referrals: Brittani Alas MD [Primary Care Provider] - 1-2 days Chandan Macias MD [STAFF PHYSICIAN] - 1-2 days Time of Disposition: 12:57
--- NOTE | 2020-12-24 12:53 | XR ---
EXAMINATION TYPE: XR ankle complete LT DATE OF EXAM: 12/24/2020 COMPARISON: 07/01/2018 HISTORY: Fall, swelling TECHNIQUE: 3 view left ankle FINDINGS: Diffuse soft tissue swelling is present. This may be slightly greater on the lateral aspect . Tip of the distal fibula appears stable. No displaced fractures are identified. Ankle mortise appea rs intact. IMPRESSION: 1. Diffuse soft tissue swelling. 2. Follow up exams can be performed 7-10 days from acute trauma for continued pain.
--- NOTE | 2020-12-24 12:53 | XR ---
EXAMINATION TYPE: XR tibia fibula LT DATE OF EXAM: 12/24/2020 COMPARISON: None HISTORY: Fall, pain TECHNIQUE: 2 view left tibia and fibula FINDINGS: Joint spaces appear preserved. Soft tissue swelling is over the ankle. No acute fractures o r dislocations are evident. IMPRESSION: 1. No acute osseous abnormality left tibia and fibula
[2020-12-24 13:28] VITALS: BP 130/68; PULSE 83
== END 2020-12-24 13:15 | disposition home or self-care (01) ==
LOC: EC 11:52
DX: S96.912A Strain of unspecified muscle and tendon at ankle and foot level, left foot, initial encounter (principal); Y93.01 Activity, walking, marching and hiking; I10 Essential (primary) hypertension
CPT/HCPCS: 99283

== ENCOUNTER 2021-01-13 07:23 | Day surgery (SDC) | payer OTHER ==
[2021-01-13] MEDS ORDERED: diazePAM 5 MG TAB PO PRN (08:44)
[2021-01-13 10:39] VITALS: TEMP 98.1
[2021-01-13 11:23] VITALS: RESP 18
[2021-01-13 12:31] VITALS: BP 129/84; PULSE 86
--- NOTE | 2021-01-13 12:53 | FL ---
EXAMINATION TYPE: FL guided lumbar puncture LP DATE OF EXAM: 01/13/2021 COMPARISON: NONE HISTORY: Papilledema, optic papillitis TECHNIQUE: Fluoroscopy. FINDINGS: Fluoroscopic guidance was provided during lumbar puncture procedure performed by myself. A total of 1.36 minutes of fluoroscopic time was utilized during the procedure and 0 spot images are saved. Procedure explained to patient. Benefits, alternatives, and risks were discussed. Informed consent wa s obtained. The roughly L3 level is chosen for attempted sampling. Due to patient's size direct posterior approac h is attempted. Overlying skin is cleansed with Betadine. Lidocaine is used as anesthetic into the sk in and deeper tissue. A 20-gauge spinal needle was successfully advanced into the spinal canal. Opening pressure is within normal limits, 13 mm water. Clear CSF fluid was obtained. Approximately 5 cc was obtained. At this po int needle was withdrawn. Patient tolerated procedure well without any worsening pain. Vital signs monitored before during and after procedure. Patient was stable after procedure and in hospital for short stay after procedure. P atient was eventually discharged in stable satisfactory condition. IMPRESSION: Successful uncomplicated fluoroscopic assisted lumbar puncture for CSF obtainment. Fluid sent to lab for ordered lab analysis.
== END 2021-01-13 12:40 | disposition home or self-care (01) ==
LOC: RADPROMAIN 07:23 → 6PED 10:41 → RADPROMAIN 12:40
PROVIDERS: ATTEND Ophthalmology
DX: H47.10 Unspecified papilledema (principal); H46.00 Optic papillitis, unspecified eye
CPT/HCPCS: 88108; 62328; J2001

== ENCOUNTER 2021-11-30 12:47 | Emergency (ER) | payer OTHER ==
[2021-11-30 12:57] VITALS: BP 113/83; PULSE 74; RESP 16; TEMP 97.5
--- NOTE | 2021-11-30 13:17 | ED ---
General Adult HPI - General Chief complaint: Extremity Injury, Lower Stated complaint: Rt Leg Swelling/Pain Time Seen by Provider: 11/30/21 12:55 Source: patient, RN notes reviewed, old records reviewed Mode of arrival: ambulatory Limitations: no limitations - History of Present Illness Initial comments: This is a 21-year-old female who presents to the emergency department stating that she injured her leg in June never was seen for. Patient states there is a bruise on the proximal medial aspect of her right leg that is been since June. Patient states she also has pain in the posterior aspect of her leg into the calf region. Patient states is a little pain about the knee as well. Patient denies any ankle pain. Patient denies any hip pain patient states she's able to ambulate. Patient states the right leg is a little more swollen than the left leg. - Related Data Home Medications Medication Instructions Recorded Confirmed Butalb/APAP/Caff 50-325-40Mg 1 tab PO Q4H PRN 11/30/21 11/30/21 [Fioricet 50-325-40] Ergocalciferol [Vitamin D2 (1250 1,250 mcg PO MOWE 11/30/21 11/30/21 Mcg = 83271 Iu)] Levothyroxine Sodium [Synthroid] 175 mcg PO DAILY 11/30/21 11/30/21 Previous Rx's Medication Instructions Recorded Labetalol [Trandate] 200 mg PO BID #60 tab 08/05/19 Ibuprofen [Motrin] 600 mg PO Q6HR PRN #20 tab 11/30/21 Allergies Allergy/AdvReac Type Severity Reaction Status Date / Time No Known Allergies Allergy Verified 11/30/21 14:09 Review of Systems ROS Statement: Those systems with pertinent positive or pertinent negative responses have been documented in the HPI. ROS Other: All systems not noted in ROS Statement are negative. Past Medical History Past Medical History: Hypertension, Thyroid Disorder Additional Past Medical History / Comment(s): pre eclampsia, gest hypertention, HTN started with , History of Any Multi-Drug Resistant Organisms: None Reported Past Surgical History: Section, Cholecystectomy Additional Past Surgical History / Comment(s): pancreatic stents, Past Anesthesia/Blood Transfusion Reactions: No Reported Reaction Additional Past Anesthesia/Blood Transfusion Reaction / Comment(s): no previous blood transfusion Past Psychological History: No Psychological Hx Reported Smoking Status: Never smoker Past Alcohol Use History: None Reported Past Drug Use History: None Reported - Past Family History Mother Family Medical History: No Reported History General Exam - General Exam Comments Initial Comments: GENERAL: Patient is well-developed and well-nourished. Patient is nontoxic and well- hydrated and is in mild distress. ENT: Neck is soft and supple. No significant lymphadenopathy is noted. Oropharynx is clear. Moist mucous membranes. Neck has full range of motion without eliciting any pain. EYES: The sclera were anicteric and conjunctiva were pink and moist. Extraocular movements were intact and pupils were equal round and reactive to light. Eyelids were unremarkable. SKIN: Skin is clear with no lesions or rashes and otherwise unremarkable. NEUROLOGIC: Patient is alert and oriented x3. Cranial nerves II through XII are grossly intact. Motor and sensory are also intact. Normal speech, volume and content. Symmetrical smile. MUSCULOSKELETAL: Patient has a healing bruise on the proximal medial aspect of the right leg and patient does have increased size of the leg compared to the left and there is some proximal calf tenderness. LYMPHATICS: No significant lymphadenopathy is noted PSYCHIATRIC: Normal psychiatric evaluation. Limitations: no limitations Course Vital Signs 11/30/21 12:53 Temperature 97.5 F L Pulse Rate 74 Respiratory 16 Rate Blood Pressure 113/83 O2 Sat by Pulse 97 Oximetry Medical Decision Making - Medical Decision Making X-ray of the leg shows no acute abnormality. Ultrasound like shows no DVT. Disposition Clinical Impression: Muscle strain Disposition: HOME SELF-CARE Condition: Good Instructions (If sedation given, give patient instructions): Muscle Strain (ED) Additional Instructions: Patient can take Motrin when necessary for pain Prescriptions: Ibuprofen [Motrin] 600 mg PO Q6HR PRN #20 tab PRN Reason: For pain Is patient prescribed a controlled substance at d/c from ED?: No Referrals: Brittani Alas MD [Primary Care Provider] - 1-2 days Time of Disposition: 14:16
--- NOTE | 2021-11-30 13:32 | XR ---
EXAMINATION TYPE: XR knee complete RT DATE OF EXAM: 11/30/2021 COMPARISON: NONE HISTORY: Pain TECHNIQUE: Three views are submitted. FINDINGS: Joint spaces are preserved. Osseous structures are intact. No acute fracture seen. IMPRESSION: 1. No acute fracture or dislocation.
--- NOTE | 2021-11-30 14:08 | US ---
EXAMINATION TYPE: US venous doppler duplex LE RT DATE OF EXAM: 11/30/2021 1:54 PM COMPARISON: NONE CLINICAL HISTORY: Trauma. Patient fell through her deck in June, had had a bruise since. SIDE PERFORMED: Right TECHNIQUE: The lower extremity deep venous system is examined utilizing real time linear array sonog karen with graded compression, doppler sonography and color-flow sonography. VESSELS IMAGED: Common Femoral Vein Deep Femoral Vein Greater Saphenous Vein * Femoral Vein Popliteal Vein Small Saphenous Vein * Proximal Calf Veins (* superficial vessels) Right Leg: Negative for DVT IMPRESSION: 1. No diagnostic evidence of DVT as visualized.
== END 2021-11-30 14:37 | disposition home or self-care (01) ==
LOC: EC 12:47
DX: S86.911A Strain of unspecified muscle(s) and tendon(s) at lower leg level, right leg, initial encounter (principal); I10 Essential (primary) hypertension; E07.9 Disorder of thyroid, unspecified; Z90.49 Acquired absence of other specified parts of digestive tract; X58.XXXA Exposure to other specified factors, initial encounter
CPT/HCPCS: 99284

== ENCOUNTER → 2022-01-20 | Outpatient (CLI) | payer OTHER | END | disposition home or self-care (01) | LOC: LABWHC1 10:08 | PROVIDERS: ATTEND Obstetrics & Gynecology | DX: O20.0 Threatened abortion (principal); Z3A.00 Weeks of gestation of pregnancy not specified | CPT/HCPCS: 36415; 84702 ==

== ENCOUNTER → 2023-02-28 | Outpatient (CLI) | payer OTHER ==
--- NOTE | 2023-02-28 15:37 | US ---
EXAMINATION TYPE: Transabdominal DATE OF EXAM: 02/28/2023 2:38 PM COMPARISON: NONE CLINICAL INDICATION: Female, 23 years old with history of Z34.90 ENCNTR FOR SUPRVSN OF NORMAL PREGNAN CY, UNSP, UNSP TR; Confirm dates EXAM PERFORMED: Transvaginal (TV) and Transabdominal (TA) EXAM MEASUREMENTS: GESTATIONAL AGE / DATING Physician Established: (8 weeks/3 days) EDC: 10/07/2023 Dates by LMP: (8 weeks/3 days) EDC: 10/07/2023 Dates by First Scan: No previous this is first scan Dates by Current Scan for: (9 weeks/3 days) EDC: 09/30/2023 MATERNAL ANATOMY Uterus: 9.3 x 5.9 x 7.7 cm Right Ovary: 3.3 x 2.6 x 2.4 cm Left Ovary: Obscured by overlying bowel gas Post CDS / Adnexa: wnl Presence of free fluid: No Presence of subchorionic bleed: No GESTATION / SURVEY CRL: 2.6 cm (9 weeks/3 days) MSD: wnl Yolk Sac (normal less than 6mm): 4mm Heart Rate: 169 bpm Rhythm: Normal IUP: Viable IUP Date of LMP: 12/31/2022 Single, viable IUP IMPRESSION: Single live intrauterine gestation ultrasound age 9 weeks 3 days.
== END | disposition home or self-care (01) ==
LOC: RADUSWWP 14:10
PROVIDERS: ATTEND Obstetrics & Gynecology
DX: Z34.90 Encounter for supervision of normal pregnancy, unspecified, unspecified trimester (principal); Z3A.09 9 weeks gestation of pregnancy
CPT/HCPCS: 76801; 76817

== ENCOUNTER 2023-03-14 14:27 | Emergency (ER) | payer OTHER ==
[2023-03-14 14:41] VITALS: RESP 18; TEMP 99.1
--- NOTE | 2023-03-14 15:02 | ED ---
General Adult HPI - General Chief complaint: Vaginal Bleeding Stated complaint: vaginal bleeding - 11 wks preg Time Seen by Provider: 03/14/23 15:02 Source: patient Mode of arrival: ambulatory Limitations: no limitations - History of Present Illness Initial comments: Lauren is a 23-year-old female currently 11 weeks gestation based off ultrasound taken at 9 weeks. Patient presents the ER today for evaluation of 2 days of spotting when she uses the restroom. No active bleeding and clots no cramping or pain. Patient came to ER because she cannot see her OB are number of weeks and she has a history of miscarriage in the past so she is quite anxious. Patient reports she was last sexually active for 5 days ago. No concern for sexually transmitted infections. She is having no dysuria or illness. - Related Data Home Medications Medication Instructions Recorded Confirmed Butalb/APAP/Caff 50-325-40Mg 1 tab PO Q4H PRN 11/30/21 11/30/21 [Fioricet 50-325-40] Ergocalciferol [Vitamin D2 (1250 1,250 mcg PO MOWE 11/30/21 11/30/21 Mcg = 56370 Iu)] Levothyroxine Sodium [Synthroid] 175 mcg PO DAILY 11/30/21 11/30/21 Previous Rx's Medication Instructions Recorded Labetalol [Trandate] 200 mg PO BID #60 tab 08/05/19 Ibuprofen [Motrin] 600 mg PO Q6HR PRN #20 tab 11/30/21 Allergies Allergy/AdvReac Type Severity Reaction Status Date / Time No Known Allergies Allergy Verified 03/14/23 14:41 Review of Systems ROS Statement: Those systems with pertinent positive or pertinent negative responses have been documented in the HPI. ROS Other: All systems not noted in ROS Statement are negative. Past Medical History Past Medical History: Hypertension, Thyroid Disorder Additional Past Medical History / Comment(s): pre eclampsia, gest hypertention, HTN started with , History of Any Multi-Drug Resistant Organisms: None Reported Past Surgical History: Section, Cholecystectomy Additional Past Surgical History / Comment(s): pancreatic stents, Past Anesthesia/Blood Transfusion Reactions: No Reported Reaction Additional Past Anesthesia/Blood Transfusion Reaction / Comment(s): no previous blood transfusion Past Psychological History: No Psychological Hx Reported Smoking Status: Never smoker Past Alcohol Use History: None Reported Past Drug Use History: None Reported - Past Family History Mother Family Medical History: No Reported History General Exam - General Exam Comments Initial Comments: Physical Exam GENERAL: Patient is well-developed and well-nourished. Patient is nontoxic and well-hydrated and is in no distress. HENT: Normocephalic, Atraumatic. EYES: PERRL, EOMI PULMONARY: Unlabored respirations. CARDIOVASCULAR: RRR Warm and well perfused extremities ABDOMEN: Obese, Non-distended SKIN: No rashes or bruising : Declined pelvic exam NEUROLOGIC: Alert and oriented Normal speech MUSCULOSKELETAL: Moving all extremities with no apparent injury PSYCHIATRIC: No SI/HI Limitations: no limitations Course Vital Signs 03/14/23 03/14/23 14:39 15:06 Temperature 99.1 F Pulse Rate 85 86 Respiratory 18 18 Rate Blood Pressure 135/89 118/75 O2 Sat by Pulse 98 97 Oximetry Medical Decision Making - Medical Decision Making The patient was seen and evaluated, history is obtained from the patient, urinalysis with no signs of infection. Bedside ultrasound shows an active single intrauterine fetus. Patient was reassured she is comfortable with plan for discharge home, pelvic rest and follow up with OB at [facility] pt. sent in by a medical professional or institution (, PA, PNEUMATIC TUBE FITTER, urgent care, hospital, or assisted...) When possible be specific @ -No Did you speak to anyone other than the patient for history (EMS, parent, family, police, friend...)? What history was obtained from this source @ -No Did you review nursing and triage notes (agree or disagree)? Why? @ -I reviewed and agree with nursing and triage notes Were old charts reviewed (outside hosp., previous admission, EMS record, old EKG, old radiological studies, urgent care reports/EKG's, assisted records)? Report findings @ -No old charts were reviewed Differential Diagnosis (chest pain, altered mental status, abdominal pain women, abdominal pain men, vaginal bleeding, weakness, fever, dyspnea, syncope, headache, dizziness, GI bleed, back pain, seizure, CVA, palpatations, mental health, musculoskeletal)? @ -Differential diagnosis for vaginal bleeding in includes miscarriage, threatened miscarriage, implantation bleeding, subchorionic hemorrhage, cervical bleeding, vaginal laceration this list is not all inclusive EKG interpreted by me (3pts min.). @ -As above X-rays interpreted by me (1pt min.). @ -None done CT interpreted by me (1pt min.). @ -None done U/S interpreted by me (1pt. min.). @ -None done What testing was considered but not performed or refused? (CT, X-rays, U/S, labs)? Why? @ -None What meds were considered but not given or refused? Why? @ -None Did you discuss the management of the patient with other professionals (professionals i.e. , PA, PNEUMATIC TUBE FITTER, lab, RT, psych nurse, social professionals, cane furniture maker, teacher, corporate ethics officer, shelter case manager)? Give summary @ -No Was smoking cessation discussed for >3mins.? @ -No Was critical care preformed (if so, how long)? @ -No Were there social determinants of health that impacted care today? How? (Homelessness, low income, unemployed, alcoholism, drug addiction, transportation, low edu. Level, literacy, decrease access to med. care, halfway, rehab)? @ -No Was there de-escalation of care discussed even if they declined (Discuss DNR or withdrawal of care, Hospice)? DNR status @ -No What co-morbidities impacted this encounter? (DM, HTN, Smoking, COPD, CAD, Cancer, CVA, ARF, Chemo, Hep., AIDS, mental health diagnosis, sleep apnea, morbid obesity)? @ -None Was patient admitted / discharged? Hospital course, mention meds given and route, prescriptions, significant lab abnormalities, going to OR and other pertinent info. @ -Discharged Undiagnosed new problem with uncertain prognosis? @ -No Drug Therapy requiring intensive monitoring for toxicity (Heparin, Nitro, Insulin, Cardizem)? @ -No Were any procedures done? @ -Bedside ultrasound Diagnosis/symptom? @ -Vaginal bleeding in first trimester Acute, or Chronic, or Acute on Chronic? @ -Acute Uncomplicated (without systemic symptoms) or Complicated (systemic symptoms)? @ -default Side effects of treatment? @ -No Exacerbation, Progression, or Severe Exacerbation? @ -No Poses a threat to life or bodily function? How? (Chest pain, [place], [place], pneumonia, PE, COPD, DKA, ARF, appy, cholecystitis, CVA, Diverticulitis, Homicidal, Suicidal, threat to staff... and all critical care pts) @ -No - Lab Data Lab Results 03/14/23 Range/Units 15:13 Urine Color Yellow Urine Appearance Clear (Clear) Urine pH 6.0 (5.0-8.0) Ur Specific [place] 1.017 (1.001-1.035) Urine Protein Negative (Negative) Urine Glucose (UA) Negative (Negative) Urine Ketones Negative (Negative) Urine Blood Negative (Negative) Urine Nitrite Negative (Negative) Urine Bilirubin Negative (Negative) Urine Urobilinogen <2.0 (<2.0) mg/dL Ur Leukocyte Esterase Negative (Negative) Disposition Clinical Impression: Vaginal bleeding Disposition: HOME SELF-CARE Condition: Stable Instructions (If sedation given, give patient instructions): Threatened Miscarriage (ED) Is patient prescribed a controlled substance at d/c from ED?: No Referrals: Brittani Alas MD [Primary Care Provider] - 1-2 days
[2023-03-14 15:26] LABS: Appearance,Urine Clear (Clear); Bilirubin,Urine Negative (Negative); Blood,Urine Negative (Negative); Color,Urine Yellow; Glucose,Urine (UA) Negative (Negative); Ketones,Urine Negative (Negative); Leukocyte Esterase,Urine Negative (Negative); Nitrite,Urine Negative (Negative); Protein,Urine Negative (Negative); Specific Gravity,Urine 1.017 (1.001-1.035); Urobilinogen,Urine <2.0 mg/dL (<2.0)
[2023-03-14 15:50] VITALS: BP 124/76; PULSE 71
== END 2023-03-14 15:50 | disposition home or self-care (01) ==
LOC: EC 14:27
DX: O46.91 Antepartum hemorrhage, unspecified, first trimester (principal); O10.911 Unspecified pre-existing hypertension complicating pregnancy, first trimester; O99.281 Endocrine, nutritional and metabolic diseases complicating pregnancy, first trimester; N93.9 Abnormal uterine and vaginal bleeding, unspecified; E07.9 Disorder of thyroid, unspecified; Z79.890 Hormone replacement therapy; Z79.899 Other long term (current) drug therapy; Z90.49 Acquired absence of other specified parts of digestive tract; Z3A.11 11 weeks gestation of pregnancy
CPT/HCPCS: 81003; 99284

== ENCOUNTER 2023-08-23 17:15 | Outpatient (CLI) | payer OTHER ==
[2023-08-23 19:19] VITALS: BP 140/81; PULSE 96; RESP 20; TEMP 99.4
--- NOTE | 2023-09-26 11:41 | P.MSEPDOC ---
Presenting Problems - Arrival Data Date of Arrival on Unit: 08/23/23 Time of Arrival on Unit: 17:15 Mode of Transport: Ambulatory - Complaint OB-Reason for Admission/Chief Complaint: Other Comment: pt 1 year old edc 09/26/2023 DOM has seen a doctor at [facility] with this care. pt states she was seen at a clinic today for c/o cough. states she has bronchititis. and was told her b/p is elevated and to be seen at the hospital today due to your B/P ELEVATED. So patient showed up her with a nonprouctive cough and wanting her b/p checked Medical History - Information : 3 Para: 2 Term: 2 : 0 Abortions: Spontaneous or Elective: 0 Number of Living Children: 2 - Gestational Age Gestational Age by DOMINIC (wks/days): 35 Weeks and 1 Days - History Complications: No Care Review of Systems - Review of Systems Constitutional: No problems Breast: No problems ENT: Cough Cardiovascular: No problems Respiratory: No problems Gastrointestinal: No problems Genitourinary: No problems Musculoskeletal: No problems Neurological: No problems Skin: No problems Vital Signs - Temperature Temperature: 99.4 F Temperature Source: Oral - Pulse Right Brachial Pulse Rate: 96 Pulse Assessment Method: Automatic Cuff - Respirations Respiratory Rate: 20 Oxygen Delivery Method: Room Air O2 Sat by Pulse Oximetry: 96 - Blood Pressure Right Arm Blood Pressure: 140/81 Blood Pressure Mean: 100 Blood Pressure Source: Automatic Cuff Medical Screen Scoring - Uterine Contractions Frequency From (mins): 0 Frequency To (mins): 0 Intensity: Absent Resting: Soft to palpation - Assessment - Baby A Baseline FHR: 150 Heart Rate - NICHD Category: Category I (Normal) NST: Reactive Physician Notification - Physician Notified Physician Notified Date: 08/23/23 Physician Notified Time: 18:30 Physician: Dr Curiel New Order Received: Yes - Notification Comment Comment: may discharge to home with instructions Maternal Triage Index - Non-Urgent/Priority 4 Non-Urgent Priority 4: Yes Criteria Met for Priority 4: patient b/p on admission 140/81 pulse 95 pulse ox 95% b/p retaken after approx 30 minutes and 129/75 reflex 1plus no blurred vision or epigastric pain has a headache on occassion. reactive NST. PATIENT 5'5 tall and weight 325#. Dr Curiel called with report and orders received to have patient call her doctors office in am to be seen for f/u care Disposition - Disposition OB Disposition: Discharge to home Discharge Date: 08/23/23 Discharge Time: 18:53 I agree with the RN Medical Screening Exam: Yes Case reviewed; plan agreed upon as documented in EMR&OBIX.: Yes Diagnosis: RELATED CONDITIONS, UNSPECIFIED, THIRD TRIMESTER
== END 2023-08-23 18:39 | disposition home or self-care (01) ==
LOC: FBPOP 17:15
PROVIDERS: ATTEND Obstetrics & Gynecology Obstetrics
DX: O26.893 Other specified pregnancy related conditions, third trimester (principal); O99.513 Diseases of the respiratory system complicating pregnancy, third trimester; J20.9 Acute bronchitis, unspecified; Z3A.35 35 weeks gestation of pregnancy
CPT/HCPCS: 59025; G0463; 99213

== ENCOUNTER 2023-11-13 05:20 | Emergency (ER) | payer OTHER ==
[2023-11-13] MEDS: ACETAMINOPHEN TAB 500 MG TAB PO STA (05:40)
[2023-11-13] MEDS: IBUPROFEN 600 MG TAB PO STA (05:42)
--- NOTE | 2023-11-13 06:01 | XR ---
EXAMINATION TYPE: XR chest 1V portable DATE OF EXAM: 11/13/2023 COMPARISON: Prior chest x-ray October 05, 2018 HISTORY: Shortness of breath TECHNIQUE: Single frontal view of the chest is obtained. FINDINGS: There is no focal air space opacity, pleural effusion, or pneumothorax seen. The cardiac silhouette size is stable and within normal limits. The osseous structures are intact. IMPRESSION: No acute process. No significant change from prior.
[2023-11-13] MEDS: DEXAMETHASONE SOD PHOSPHATE 10 MG/ML 1 ML VIAL IM STA (06:17)
[2023-11-13] MEDS: ONDANSETRON ODT 4 MG TAB PO STA (06:17)
--- NOTE | 2023-11-13 06:23 | ED ---
URI HPI - General Chief Complaint: Upper Respiratory Infection Stated Complaint: Bronchitis, Difficulty breathing, Fever Time Seen by Provider: 11/13/23 05:57 Source: patient, RN notes reviewed Mode of arrival: ambulatory Limitations: no limitations - History of Present Illness Initial Comments: This is a 23-year-old female who presents to the emergency department for coughing, congestion, and shortness of breath. States that symptoms started about 4 days ago. She has associated fevers and nausea. She did not take anything for her fever prior to arrival. She went to urgent care yesterday and was started on azithromycin and prednisone. States that she woke up this morning she felt like she could not breathe, prompting her to come to the emerg ency department. Reports a history of asthma, but does not receive any regular treatment for this. She does have a baby at home who she is concerned about getting sick. MD Complaint: fever, cough, nasal congestion - Related Data Home Medications Medication Instructions Recorded Confirmed Ergocalciferol [Vitamin D2 (1250 1,250 mcg PO MOWE 11/30/21 08/23/23 Mcg = 06151 Iu)] Levothyroxine Sodium [Synthroid] 175 mcg PO DAILY 11/30/21 08/23/23 Aspirin [[place] Aspirin EC] 81 mg PO 08/23/23 Previous Rx's Medication Instructions Recorded Labetalol [Trandate] 200 mg PO BID #60 tab 08/05/19 Albuterol Sulfate [Albuterol 1 - 2 puff PO Q4-6H PRN #8.5 gm 11/13/23 Sulfate Hfa] Ipratropium-Albuterol Nebulize 3 ml INHALATION Q4-6H PRN #90 ml 11/13/23 [Duoneb 0.5 mg-3 mg/3 ml Soln] Ondansetron Odt [Zofran Odt] 4 mg PO Q8HR PRN #15 tab 11/13/23 Promethazine/Dextromethorphan 5 ml PO Q4-6H PRN #473 ml 11/13/23 [Promethazine-Dm Syrup] Allergies Allergy/AdvReac Type Severity Reaction Status Date / Time No Known Allergies Allergy Verified 11/13/23 05:31 Review of Systems ROS Statement: Those systems with pertinent positive or pertinent negative responses have been documented in the HPI. ROS Other: All systems not noted in ROS Statement are negative. Past Medical History Past Medical History: Hypertension, Thyroid Disorder Additional Past Medical History / Comment(s): pre eclampsia, gest hypertention, HTN started with , History of Any Multi-Drug Resistant Organisms: None Reported Past Surgical History: Section, Cholecystectomy Additional Past Surgical History / Comment(s): pancreatic stents, Past Anesthesia/Blood Transfusion Reactions: No Reported Reaction Additional Past Anesthesia/Blood Transfusion Reaction / Comment(s): no previous blood transfusion Past Psychological History: No Psychological Hx Reported Smoking Status: Never smoker Past Alcohol Use History: None Reported Past Drug Use History: None Reported - Past Family History Mother Family Medical History: No Reported History General Exam Limitations: no limitations General appearance: alert, in no apparent distress Head exam: Present: atraumatic, normocephalic, normal inspection Respiratory exam: Present: decreased breath sounds, prolonged expiratory Cardiovascular Exam: Present: tachycardia Neurological exam: Present: alert, oriented X3, CN II-XII intact Psychiatric exam: Present: normal affect, normal mood Skin exam: Present: warm, dry, intact, normal color. Absent: rash Course Vital Signs 11/13/23 11/13/23 11/13/23 05:28 05:35 06:41 Temperature 101.3 F H Pulse Rate 127 H 120 H Respiratory 20 24 Rate Blood Pressure 134/81 O2 Sat by Pulse 95 Oximetry 11/13/23 11/13/23 06:46 06:49 Temperature 100.4 F H Pulse Rate 104 H 120 H Respiratory 22 Rate Blood Pressure 106/68 O2 Sat by Pulse 98 Oximetry Medical Decision Making - Medical Decision Making This is a 23 year old female who presents to the emergency department for coughing and shortness of breath. Was pt. sent in by a medical professional or institution? @ -No Did you speak to anyone other than the patient for history? @ -No Did you review nursing and triage notes? @ -Yes, and I agree, it is accurate with regards to the patient's symptoms. Were old charts reviewed? @ -No Differential Diagnosis? @ -Differential Dyspnea: Coronary syndrome, arrhythmia, tamponade, asthma, COPD, pulmonary embolism, pneumonia, pneumothorax, pulmonary effusion, anaphylaxis, diabetic ketoacidosis, flailed chest, pulmonary contusion, diaphragmatic rupture, anemia, neuromuscular, this is not meant to be an all-inclusive list. EKG interpreted by me (3pts min.)? @ -Not obtained X-rays interpreted by me (1pt min.)? @ -Chest x-ray obtained, my interpretation identifies no localized consolidations or infiltrates. CT interpreted by me (1pt min.)? @ -Not obtained U/S interpreted by me (1pt. min.)? @ -Not obtained What testing was considered but not performed? (CT, X-rays, U/S, labs)? Why? @ -None What meds were considered but not given? Why? @ -None Did you discuss the management of the patient with other professionals? @ -No Did you reconcile home meds? @ -No Was smoking cessation discussed for >3mins.? @ -No Was critical care preformed (if so, how long)? @ -No Were there social determinants of health that impacted care today? How? (Homelessness, low income, unemployed, alcoholism, drug addiction, transportation, low edu. Level, literacy, decrease access to med. care, senior living, rehab)? @ -No Was there de-escalation of care discussed even if they declined? (Discuss DNR or withdrawal of care, Hospice)? @ -No What co-morbidities impacted this encounter? (DM, HTN, Smoking, COPD, CAD, Cancer, CVA, Hep., AIDS, mental health diagnosis, sleep apnea, morbid obesity)? @ -Asthma Was patient admitted / discharged? @ -Discharged. Patient febrile on arrival with a temperature of 101.3 F. Patient positive for influenza B. Chest x-ray negative. Her fever was treated with ibuprofen and Tylenol. She was also given Decadron, Zofran, and Tessalon Perles for symptomatic management. DuoNeb breathing treatment administered as well, which she states was helpful. Given the duration of her symptoms, she is out of the timeframe for Tamiflu. Advised that we will try and manage her symptoms. Prescription for DuoNeb breathing treatments, albuterol inhaler, Promethazine DM cough syrup, and Zofran provided with dosing instructions reviewed. Patient discharged home in stable condition. Undiagnosed new problem with uncertain prognosis? @ -None Drug Therapy requiring intensive monitoring for toxicity (Heparin, Nitro, Insulin, Cardizem)? @ -None Were any procedures done? @ -None Diagnosis/symptom? @ -Influenza B Acute, or Chronic, or Acute on Chronic? @ -Acute Uncomplicated (without systemic symptoms) or Complicated (systemic symptoms)? @ -Uncomplicated Side effects of treatment? @ -None Exacerbation, Progression, or Severe Exacerbation] @ -Not applicable Poses a threat to life or bodily function? @ -No Return precautions reviewed in depth, the patient is instructed to return to the emergency department with any new, worsening, or concerning symptoms. Patient verbalized understanding. This case was discussed in detail with the attending ED physician, Dr. Crouch. Presentation, findings, and treatment plan discussed in detail as well. - Lab Data Lab Results 11/13/23 Range/Units 05:41 Influenza Type A (PCR) Not Detected (Not Detectd) Influenza Type B (PCR) Detected A (Not Detectd) RSV (PCR) Not Detected (Not Detectd) SARS-CoV-2 (PCR) Not Detected (Not Detectd) - Radiology Data Radiology results: report reviewed, image reviewed Disposition Clinical Impression: Influenza B Disposition: HOME SELF-CARE Instructions (If sedation given, give patient instructions): Influenza (ED) Additional Instructions: Return to the emergency department with any new, worsening, or concerning symptoms. You can use the albuterol inhaler and breathing treatments every 4-6 hours as needed. Take the cough medication every 4-6 hours as needed and the Zofran up to every 8 hours as needed for nausea and vomiting. Alternate with ibuprofen and Tylenol as needed for any additional fevers. Follow up with your primary care provider in 1-2 days. Prescriptions: Albuterol Sulfate [Albuterol Sulfate Hfa] 1 - 2 puff PO Q4-6H PRN #8.5 gm PRN Reason: Shortness Of Breath Ipratropium-Albuterol Nebulize [Duoneb 0.5 mg-3 mg/3 ml Soln] 3 ml INHALATION Q4-6H PRN #90 ml PRN Reason: Shortness Of Breath Promethazine/Dextromethorphan [Promethazine-Dm Syrup] 5 ml PO Q4-6H PRN #473 ml PRN Reason: Cough Ondansetron Odt [Zofran Odt] 4 mg PO Q8HR PRN #15 tab PRN Reason: Nausea And Vomiting Is patient prescribed a controlled substance at d/c from ED?: No Referrals: Brittani Alas MD [Primary Care Provider] - 1-2 days Time of Disposition: 06:53
[2023-11-13] MEDS: BENZONATATE 100 MG CAP PO STA (06:27)
[2023-11-13] MEDS: IPRATROPIUM-ALBUTEROL 3 ML NEB INHALATION STA (06:40)
[2023-11-13 06:54] VITALS: BP 106/68; PULSE 120; RESP 22; TEMP 100.4
== END 2023-11-13 07:03 | disposition home or self-care (01) ==
LOC: EC 05:20
DX: J10.1 Influenza due to other identified influenza virus with other respiratory manifestations (principal)
CPT/HCPCS: 94640; 87636; 71045; 99285; 96372; J1100

== ENCOUNTER 2024-09-20 11:44 | Emergency (ER) | payer OTHER ==
[2024-09-20 11:49] VITALS: BP 129/92; PULSE 106; RESP 20; TEMP 97.7
[2024-09-20] MEDS: MORPHINE SULFATE 4 MG/ML SYRINGE IM STA (12:00)
--- NOTE | 2024-09-20 12:00 | ED ---
Lower Extremity Injury HPI - General Chief Complaint: Extremity Injury, Lower Stated Complaint: L leg pain Time Seen by Provider: 09/20/24 11:50 Source: patient, family, RN notes reviewed Mode of arrival: wheelchair Limitations: no limitations - History of Present Illness Initial Comments: This is a 24-year-old female who presents to the emergency department for a left ankle injury. States that on 09/07 she fell and broke her left ankle. She has since been in an Aircast. She followed up with [facility] She is concerned because she feels like the pain in that area is worsening and she has also started to notice redness and swelling going up the leg. Not currently taking anything for pain control. MD Complaint: ankle injury - Related Data Home Medications Medication Instructions Recorded Confirmed Ergocalciferol [Vitamin D2 (1250 1,250 mcg PO MOWE 11/30/21 08/23/23 Mcg = 03800 Iu)] Levothyroxine Sodium [Synthroid] 175 mcg PO DAILY 11/30/21 08/23/23 Aspirin [[place] Aspirin EC] 81 mg PO 08/23/23 Previous Rx's Medication Instructions Recorded Labetalol [Trandate] 200 mg PO BID #60 tab 08/05/19 Albuterol Sulfate [Albuterol 1 - 2 puff PO Q4-6H PRN #8.5 gm 11/13/23 Sulfate Hfa] Ipratropium-Albuterol Nebulize 3 ml INHALATION Q4-6H PRN #90 ml 11/13/23 [Duoneb 0.5 mg-3 mg/3 ml Soln] Ondansetron Odt [Zofran Odt] 4 mg PO Q8HR PRN #15 tab 11/13/23 Promethazine/Dextromethorphan 5 ml PO Q4-6H PRN #473 ml 11/13/23 [Promethazine-Dm Syrup] HYDROcodone/APAP 5-325MG [[place] 1 tab PO Q6HR PRN 3 Days #12 tab 09/08/24 5-325] Ibuprofen [Motrin] 600 mg PO Q8HR PRN #20 tab 09/08/24 Ibuprofen [Motrin] 800 mg PO Q8H PRN #30 tab 09/20/24 Allergies Allergy/AdvReac Type Severity Reaction Status Date / Time No Known Allergies Allergy Verified 09/20/24 11:48 Review of Systems ROS Statement: Those systems with pertinent positive or pertinent negative responses have been documented in the HPI. ROS Other: All systems not noted in ROS Statement are negative. Past Medical History Past Medical History: Hypertension, Thyroid Disorder Additional Past Medical History / Comment(s): pre eclampsia, gest hypertention, HTN started with , History of Any Multi-Drug Resistant Organisms: None Reported Past Surgical History: Section, Cholecystectomy Additional Past Surgical History / Comment(s): pancreatic stents, Past Anesthesia/Blood Transfusion Reactions: No Reported Reaction Additional Past Anesthesia/Blood Transfusion Reaction / Comment(s): no previous blood transfusion Past Psychological History: No Psychological Hx Reported Smoking Status: Never smoker Past Alcohol Use History: None Reported Past Drug Use History: None Reported - Past Family History Mother Family Medical History: No Reported History General Exam Limitations: no limitations General appearance: alert, in no apparent distress Head exam: Present: atraumatic, normocephalic, normal inspection Respiratory exam: Present: normal lung sounds bilaterally. Absent: respiratory distress, wheezes, rales, rhonchi, stridor Cardiovascular Exam: Present: regular rate, normal rhythm, normal heart sounds. Absent: systolic murmur, diastolic murmur, rubs, gallop, clicks Extremities exam: Present: other (There is no erythema or ecchymosis to the left lower extremity. Minor soft tissue swelling around the ankle with overlying tenderness. 2+ DP and PT pulses.) Neurological exam: Present: alert, oriented X3, CN II-XII intact Psychiatric exam: Present: normal affect, normal mood Skin exam: Present: warm, dry, intact, normal color. Absent: rash Course Vital Signs 09/20/24 11:45 Temperature 97.7 F Pulse Rate 106 H Respiratory 20 Rate Blood Pressure 129/92 O2 Sat by Pulse 98 Oximetry Medical Decision Making - Medical Decision Making This is a 24-year-old female who presents to the emergency department for left leg pain. Was pt. sent in by a medical professional or institution? @ -No Did you speak to anyone other than the patient for history? @ -No Did you review nursing and triage notes? @ -Yes, and I agree, it is accurate with regards to the patient's symptoms. Were old charts reviewed? @ -X-ray of the left ankle from 09/08/2024 revealing no acute fractures. Differential Diagnosis? @ -Differential Musculoskeletal Muscular strain, contusion, ligament sprain, fracture, arthritis, septic arthritis, bursitis, cellulitis, muscle spasm, nerve compression, DVT, arterial occlusion, herpes zoster, electrolyte abnormality, tumor.... This is not meant to be in all inclusive list EKG interpreted by me (3pts min.)? @ -Not obtained X-rays interpreted by me (1pt min.)? @ -X-ray of the left ankle and tib-fib obtained. My interpretation identifies no acute fractures. CT interpreted by me (1pt min.)? @ -Not obtained U/S interpreted by me (1pt. min.)? @ -Duplex ultrasound of the left lower extremity obtained. My interpretation identifies no evidence of a DVT. What testing was considered but not performed? (CT, X-rays, U/S, labs)? Why? @ -None What meds were considered but not given? Why? @ -None Did you discuss the management of the patient with other professionals? @ -No Did you reconcile home meds? @ -No Was smoking cessation discussed for >3mins.? @ -No Was critical care preformed (if so, how long)? @ -No Were there social determinants of health that impacted care today? How? (Homelessness, low income, unemployed, alcoholism, drug addiction, transportation, low edu. Level, literacy, decrease access to med. care, senior living, rehab)? @ -No Was there de-escalation of care discussed even if they declined? (Discuss DNR or withdrawal of care, Hospice)? @ -No What co-morbidities impacted this encounter? (DM, HTN, Smoking, COPD, CAD, Cancer, CVA, Hep., AIDS, mental health diagnosis, sleep apnea, morbid obesity)? @ -None Was patient admitted / discharged? @ -Discharged. X-ray of the left ankle and tib-fib obtained, however no acute fractures were identified. Additionally, x-ray of the left ankle from 09/08 also revealed no acute fractures. Patient reports following up with podiatry and being diagnosed with a fracture in the fibula. She has since been wearing an Aircast. We did also obtain a duplex ultrasound of the left lower extremity revealing no evidence of a DVT. She was neurovascularly intact and had good pulses. Aside from minor soft tissue swelling around the ankle, she had no e xternal irregularities on exam. We do not have access to her records from the podiatry office to see if she was in fact diagnosed with a fracture. It is unclear what the extent of her injury is, however from our perspective on the imaging we have here, no osseous abnormality was identified. Pain was treated in the emergency department. Refill on ibuprofen provided. Patient discharged home in stable condition and will follow-up with podiatry as scheduled later this week. Case discussed with ED attending Dr. Kim. Return precautions reviewed in depth, the patient is instructed to return to the emergency department with any new, worsening, or concerning symptoms. Patient verbalized understanding. Undiagnosed new problem with uncertain prognosis? @ -None Drug Therapy requiring intensive monitoring for toxicity (Heparin, Nitro, Insulin, Cardizem)? @ -None Were any procedures done? @ -None Diagnosis/symptom? @ -Left ankle injury Acute, or Chronic, or Acute on Chronic? @ -Acute Uncomplicated (without systemic symptoms) or Complicated (systemic symptoms)? @ -Uncomplicated Side effects of treatment? @ -None Exacerbation, Progression, or Severe Exacerbation] @ -Not applicable Poses a threat to life or bodily function? @ -May limit her ability to ambulate for the meantime - Radiology Data Radiology results: report reviewed, image reviewed Disposition Clinical Impression: Left ankle injury Disposition: HOME SELF-CARE Additional Instructions: Return to the emergency department with any new, worsening, or concerning symptoms. Alternate with ibuprofen and Tylenol as needed for pain relief. Follow-up with Dr. Heredia. Prescriptions: Ibuprofen [Motrin] 800 mg PO Q8H PRN #30 tab PRN Reason: Pain Is patient prescribed a controlled substance at d/c from ED?: No Referrals: Brittani Alas MD [Primary Care Provider] - 1-2 days Time of Disposition: 14:02
[2024-09-20] MEDS: KETOROLAC 15 MG/ML 1 ML VIAL IM STA ×2 (12:01→14:28)
--- NOTE | 2024-09-20 12:49 | XR ---
EXAMINATION TYPE: XR ankle complete LT, XR tibia fibula LT DATE OF EXAM: 09/20/2024 COMPARISON: Left ankle and tibia/fibular radiographs 12/24/2020, left ankle radiograph 07/01/2018 HISTORY: Pain from fall TECHNIQUE: The left ankle was evaluated in AP, oblique, and lateral projections. The left tibia/fibul a was evaluated and AP and lateral projections. FINDINGS: There is no evidence for fracture or dislocation. Ankle mortise is intact. No radiopaque fo reign bodies. Mild soft tissue swelling at the ankle. IMPRESSION: 1. No evidence for acute fracture. 2. Mild soft tissue swelling the ankle. [facility], , 09/20/2024 12:46 PM
--- NOTE | 2024-09-20 13:44 | US ---
EXAMINATION TYPE: US venous doppler duplex LE LT DATE OF EXAM: 09/20/2024 1:38 PM COMPARISON: XR today CLINICAL INDICATION: Female, 24 years old with history of Pain and swelling; patient states pain and swelling. States she fractured her ankle the other day. No hx dvt. not on thinners. States leg TECHNIQUE: The lower extremity deep venous system is examined utilizing real time linear array sonog karen with graded compression, color doppler sonography, and spectral doppler. SIDE PERFORMED: Left FINDINGS: VESSELS IMAGED: Common Femoral Vein Deep Femoral Vein Greater Saphenous Vein * Femoral Vein Popliteal Vein Small Saphenous Vein * Proximal Calf Veins (* superficial vessels) suboptimal exam due to body habitus Left Leg: negative for dvt, Color Doppler imaging shows patency of the vessels. Spectral waveforms a re within normal limits. IMPRESSION: No evidence of deep vein thrombosis of the left lower extremity. [facility], , 09/20/2024 1:41 PM
[2024-09-20] MEDS: HYDROmorphone 1 MG/ML 1 ML SYRINGE IM STA (14:28)
[2024-09-20] MEDS: ACET/COD 300 MG/30 MG STARTER PACK 6 TAB BTL PO STA (14:29)
== END 2024-09-20 19:15 | disposition home or self-care (01) ==
LOC: EC 11:44
DX: S99.912A Unspecified injury of left ankle, initial encounter (principal); W19.XXXA Unspecified fall, initial encounter
CPT/HCPCS: 73590; 73610; 93971; 99284; 96372 ×4; J2270; J1171; J1885

== ENCOUNTER → 2024-11-04 | Outpatient (CLI) | payer OTHER ==
--- NOTE | 2024-11-04 08:32 | MR ---
EXAMINATION TYPE: MR ankle LT wo con DATE OF EXAM: 11/04/2024 6:39 AM COMPARISON: Plain film CLINICAL INDICATION: Female, 24 years old with history of S86.312A STRAIN MUSC/TEND PERONEAL GRP AT L OW LEG; PHH, Left Ankle pain, swelling, limited movement and clicking x9 weeks due to a fall TECHNIQUE: Multi planar, multi sequence imaging was performed. No Gadolinium given. IV Contrast: mL (None.) FINDINGS: LIGAMENTS AND TENDONS: High PD signal/edema surrounding the extensor digitorum longus tendon as it crosses the ankle series 14102 image 27. This is immediately next to the talus series 801 image 23 where it likely remaining a nd the talus. The Fibularis longus and brevis are intact. No abnormal edema or abnormal signal within the Fibularis longus or brevis tendons. The anterior talofibular ligament, calcaneofibular ligament, posterior talofibular ligament, tibiofib ular ligaments, and deltoid ligament are intact. The anterior compartment, posterior compartment, la teral compartment, and medial compartment tendons have a normal appearance. The portion of the plant ar fascia seen is unremarkable. OSSEOUS STRUCTURES AND CARTILAGE: The talar dome has a normal morphology and signal intensity. The s inus tarsus has a normal signal intensity. The bone marrow signal intensity is within normal limits. IMPRESSION: 1. Mild edema on the dorsal foot near the extensor digitorum longus tendon as it crosses into the fo ot where it closely approximates possibly ribs against the talus. Correlate for dorsal foot pain late rally. 2. No evidence for bony edema or evidence for fracture. 3. No abnormal edema or abnormal signal within the fibular longus or brevis tendons. [facility], , 11/04/2024 8:29 AM
== END | disposition home or self-care (01) ==
LOC: RADMRIMAIN 05:52
PROVIDERS: ATTEND Podiatrist Foot & Ankle Surgery
DX: S86.312A Strain of muscle(s) and tendon(s) of peroneal muscle group at lower leg level, left leg, initial encounter (principal)

== ENCOUNTER 2024-11-21 01:32 | Emergency (ER) | payer OTHER ==
[2024-11-21 01:38] VITALS: RESP 18
--- NOTE | 2024-11-21 01:55 | ED ---
General Adult HPI - General Chief complaint: Extremity Injury, Lower Stated complaint: L Ankle Injury Time Seen by Provider: 11/21/24 01:38 Source: patient, RN notes reviewed, old records reviewed Mode of arrival: wheelchair - History of Present Illness Initial comments: -year-old female with approximately 11 weeks of left ankle pain. Patient had initial sprain and was diagnosed with possible hairline fracture. She has follow-up with foot and ankle specialist is currently in an orthopedic compressive boot and has had workup including x-ray on multiple occasions and MRI of the left ankle. Patient reports pain and swelling that is persistent in the ankle. No reported chest pain or dyspnea. - Related Data Home Medications Medication Instructions Recorded Confirmed Ergocalciferol [Vitamin D2 (1250 1,250 mcg PO MOWE 11/30/21 08/23/23 Mcg = 01316 Iu)] Levothyroxine Sodium [Synthroid] 175 mcg PO DAILY 11/30/21 08/23/23 Aspirin [[place] Aspirin EC] 81 mg PO 08/23/23 Previous Rx's Medication Instructions Recorded Labetalol [Trandate] 200 mg PO BID #60 tab 08/05/19 Albuterol Sulfate [Albuterol 1 - 2 puff PO Q4-6H PRN #8.5 gm 11/13/23 Sulfate Hfa] Ipratropium-Albuterol Nebulize 3 ml INHALATION Q4-6H PRN #90 ml 11/13/23 [Duoneb 0.5 mg-3 mg/3 ml Soln] Ondansetron Odt [Zofran Odt] 4 mg PO Q8HR PRN #15 tab 11/13/23 Promethazine/Dextromethorphan 5 ml PO Q4-6H PRN #473 ml 11/13/23 [Promethazine-Dm Syrup] HYDROcodone/APAP 5-325MG [[place] 1 tab PO Q6HR PRN 3 Days #12 tab 09/08/24 5-325] Ibuprofen [Motrin] 600 mg PO Q8HR PRN #20 tab 09/08/24 Ibuprofen [Motrin] 800 mg PO Q8H PRN #30 tab 09/20/24 Ibuprofen [Motrin] 600 mg PO Q8HR PRN #24 tab 11/21/24 Allergies Allergy/AdvReac Type Severity Reaction Status Date / Time No Known Allergies Allergy Verified 11/21/24 01:38 Review of Systems ROS Statement: Those systems with pertinent positive or pertinent negative responses have been documented in the HPI. ROS Other: All systems not noted in ROS Statement are negative. Past Medical History Past Medical History: Hypertension, Thyroid Disorder Additional Past Medical History / Comment(s): pre eclampsia, gest hypertention, HTN started with , History of Any Multi-Drug Resistant Organisms: None Reported Past Surgical History: Section, Cholecystectomy Additional Past Surgical History / Comment(s): pancreatic stents, Past Anesthesia/Blood Transfusion Reactions: No Reported Reaction Additional Past Anesthesia/Blood Transfusion Reaction / Comment(s): no previous blood transfusion Past Psychological History: No Psychological Hx Reported Smoking Status: Never smoker Past Alcohol Use History: None Reported Past Drug Use History: None Reported - Past Family History Mother Family Medical History: No Reported History General Exam General appearance: alert, in no apparent distress Head exam: Present: atraumatic, normocephalic Eye exam: Present: normal appearance, PERRL Respiratory exam: Absent: respiratory distress Cardiovascular Exam: Present: regular rate, normal rhythm GI/Abdominal exam: Absent: distended Extremities exam: Present: joint swelling (Swelling over the posterior aspect of the left lateral malleolus. The foot is well-perfused normal cap refill.) Course Vital Signs 11/21/24 01:34 Temperature 97.9 F Pulse Rate 114 H Respiratory 18 Rate Blood Pressure 151/93 O2 Sat by Pulse 96 Oximetry - Reevaluation(s) Reevaluation #1: 11/21/24 01:55 Patient denies current Medical Decision Making - Medical Decision Making Was pt. sent in by a medical professional or institution (Dr. PA, MANAGER RADIATION, urgent care, hospital, or long term...) When possible be specific @ -No Did you speak to anyone other than the patient for history (EMS, parent, family, police, friend...)? What history was obtained from this source @ -No Did you review nursing and triage notes (agree or disagree)? Why? @ -I reviewed and agree with nursing and triage notes Were old charts reviewed (outside hosp., previous admission, EMS record, old EKG, old radiological studies, urgent care reports/EKG's, long term records)? Report findings @ -No old charts were reviewed Differential Musculoskeletal Muscular strain, contusion, ligament sprain, fracture, arthritis, septic arthritis, bursitis, cellulitis, muscle spasm, nerve compression, DVT, arterial occlusion, herpes zoster, electrolyte abnormality, tumor.... This is not meant to be in all inclusive list EKG interpreted by me (3pts min.). @ -As above X-rays interpreted by me (1pt min.). @ -None done CT interpreted by me (1pt min.). @ -None done U/S interpreted by me (1pt. min.). @ -None done What testing was considered but not performed or refused? (CT, X-rays, U/S, labs)? Why? @ -None What meds were considered but not given or refused? Why? @ -None Did you discuss the management of the patient with other professionals (professionals i.e. , PA, MANAGER RADIATION, lab, RT, psych nurse, clinical social work aide, plexiglas former, teacher, fiscal officer, family independence case manager)? Give summary @ -No Was smoking cessation discussed for >3mins.? @ -No Was critical care preformed (if so, how long)? @ -No Were there social determinants of health that impacted care today? How? (Homelessness, low income, unemployed, alcoholism, drug addiction, transportation, low edu. Level, literacy, decrease access to med. care, detention, rehab)? @ -No Was there de-escalation of care discussed even if they declined (Discuss DNR or withdrawal of care, Hospice)? DNR status @ -No What co-morbidities impacted this encounter? (DM, HTN, Smoking, COPD, CAD, Cancer, CVA, ARF, Chemo, Hep., AIDS, mental health diagnosis, sleep apnea, morbid obesity)? @ -None Was patient admitted / discharged? Hospital course, mention meds given and route, prescriptions, significant lab abnormalities, going to OR and other pertinent info. @ -24-year-old female with chronic left ankle pain patient currently receiving care by a foot and ankle specialist she has had multiple x-rays and MRI. She is currently in a compressive orthopedic boot. There is soft tissue swelling at the lateral malleolus on the left. Patient will continue follow-up and is requesting second opinion of a hair or beauty salon assistant. Patient placed on Motrin for symptomatic relief. She is encouraged to continue to ice and elevate the extremity. Undiagnosed new problem with uncertain prognosis? @ -No Drug Therapy requiring intensive monitoring for toxicity (Heparin, Nitro, Insulin, Cardizem)? @ -No Were any procedures done? @ -No Diagnosis/symptom? @Ankle pain Acute, or Chronic, or Acute on Chronic? @ -[Acute Uncomplicated (without systemic symptoms) or Complicated (systemic symptoms)? @ -Default Side effects of treatment? @ -No Exacerbation, Progression, or Severe Exacerbation? @ -No Poses a threat to life or bodily function? How? (Chest pain, [place], [place], pneumonia, PE, COPD, DKA, ARF, appy, cholecystitis, CVA, Diverticulitis, Homicidal, Suicidal, threat to staff... and all critical care pts) @ -No Disposition Clinical Impression: Ankle pain, left Disposition: HOME SELF-CARE Condition: Fair Instructions (If sedation given, give patient instructions): Swollen Joint (ED) Is patient prescribed a controlled substance at d/c from ED?: No Referrals: Brittani Alas MD [Primary Care Provider] - 1-2 days Evgeny Vasquez DPM [STAFF PHYSICIAN] - 1-2 days Time of Disposition: 01:54
[2024-11-21] MEDS: KETOROLAC 15 MG/ML 1 ML VIAL IM STA (01:56)
[2024-11-21 02:15] VITALS: BP 144/79; PULSE 99; TEMP 98.3
== END 2024-11-21 02:22 | disposition home or self-care (01) ==
LOC: EC 01:32
DX: M25.572 Pain in left ankle and joints of left foot (principal)
CPT/HCPCS: 99283; 96372; J1885